=== PATIENT | female | born 1955 | race Caucasian/White ===

== ENCOUNTER 2017-07-24 00:15 | Inpatient (IN) | payer OTHER ==
[~2017-07-24] VITALS: Ht 147.3 cm; Wt 59.2 kg
[~2017-07-24 00:15] MED LIST: CA P PO; HUM SUBQ; INSU100S45 SUBQ; LEVEMIR SUBQ
[2017-07-24 00:29] VITALS: BP 153/77
[2017-07-24] MEDS ORDERED: NACL 0.9% 500 ML IV ONE ×2 (01:04)
--- NOTE | 2017-07-24 01:14 | NUR ---
TO ER BED 8
--- NOTE | 2017-07-24 01:35 | NUR ---
GAUGE 20 IV LINE ESTABLISHED TO THE LEFT HAND. BLOOD DRAWN AND SENT TO THE LAB.
--- NOTE | 2017-07-24 01:39 | NUR ---
URINE DIPSTICK DONE, WILL NOTIFY MD OF RESULT.
[2017-07-24 01:44] LABS: HEMATOCRIT 46.7 % (36-48); HEMOGLOBIN 15.2 g/dL (12.0-16.0); MEAN CORPUSCULAR HEMOGLOBIN 28 pg (27-31); MEAN CORPUSCULAR HGB CONC 33 g/dL (33-37); MEAN CORPUSCULAR VOLUME 86 fL (80-94); PLATELET COUNT (AUTO) 156 K/uL (140-450); RED BLOOD CELL COUNT(AUTO) 5.45 MIL/uL (4.20-5.40); RED CELL DISTRIBUTION WIDTH 12.9 % (11.6-13.7); WHITE BLOOD COUNT (AUTO) 10.2 K/uL (4.8-10.8)
[2017-07-24 01:51] LABS: LYMPHOCYTES % (MANUAL) 15 % (20-46); MONOCYTES % (MANUAL) 9 % (5-12)
--- NOTE | 2017-07-24 01:51 | NUR ---
WENT FOR CXR VIA WHEELCHAIR.
--- NOTE | 2017-07-24 01:56 | NUR ---
BACK FROM X-RAY.
[2017-07-24 01:59] LABS: ALBUMIN 4.1 g/dL (3.4-5.0); ANION GAP 13.7 (8-16); ASPARTATE AMINOTRANSFERASE 13 U/L (15-37); CARBON DIOXIDE 26.3 mmol/L (21-32); CHLORIDE 99 mmol/L (98-107); CREATININE 0.8 mg/dL (0.6-1.3); GFR ARICAN-AMERICAN 93 mL/min (>90); SODIUM SERUM 135 mmol/L (136-145); TOTAL BILIRUBIN 0.9 mg/dL (0.0-1.0); UREA NITROGEN, BLOOD 11 mg/dL (7-18)
--- NOTE | 2017-07-24 01:59 | NUR ---
MD CAME AT BEDSIDE TO EVALUATE PATIENT.
[2017-07-24 02:02] LABS: ACETONE, SERUM NEGATIVE (NEGATIVE)
[2017-07-24 02:04] LABS: GLUCOSE 451 mg/dL (74-106)
[2017-07-24] MEDS ORDERED: KETOROLAC 30 MG/ML VIAL IVP ONE (02:05)
--- NOTE | 2017-07-24 02:05 | NUR ---
TORADOL 30 MG IVP GIVEN ORDERED FOR PAIN.
--- NOTE | 2017-07-24 02:40 | NUR ---
VERBALIZED SOME IMPROVEMENT OF PAIN (8/10).
[2017-07-24] MEDS ORDERED: ASPIRIN 81 MG TAB.CHEW PO ONE (02:50)
[2017-07-24] MEDS ORDERED: INSULIN HUMAN REGULAR 100 UNITS/ML 10 ML VIAL IVP ONE (02:50)
--- NOTE | 2017-07-24 03:04 | NUR ---
ASA 162 MG PO AND REGULAR INSULIN 10 UNITS IVP GIVEN FOR BLOOD [id number].
[2017-07-24 03:08] LABS: BILIRUBIN,URINE NEGATIVE (NEGATIVE); BLOOD, URINE 1+ (NEGATIVE); COLOR,URINE YELLOW (YELLOW); LEUKOCYTE ESTERASE ,URINE NEGATIVE (NEGATIVE); NITRITE, URINE NEGATIVE (NEGATIVE); PH,URINE 5.5 (5.0-9.0); UGLUCOSE 3+ (NEGATIVE)
[2017-07-24 03:16] LABS: APPEARANCE,URINE SLIGHTLY HAZY (CLEAR)
[2017-07-24 03:18] LABS: RBC,URINE 0-5 (RARE) /HPF (0-5); WBC,URINE 0-5 (RARE) /HPF (0-5); YEAST,URINE Rare /HPF (None Seen)
[2017-07-24] MEDS ORDERED: LOPERAMIDE 2 MG CAP PO ONE (03:20)
[2017-07-24] MEDS ORDERED: fentaNYL 0.05 MG/ML VIAL IVP ONE (03:20)
--- NOTE | 2017-07-24 03:35 | NUR ---
SUBLIMAZE 25 MCG AND IMMODIUM 2 MG PO GIVEN ORDERED.
--- NOTE | 2017-07-24 03:47 | NUR ---
BLODD SUGAR [id number]. MADE AWARE.
[2017-07-24] MEDS ORDERED: MORPHINE SULFATE 2 MG/ML SYR IVP PRN (03:55)
[2017-07-24] MEDS ORDERED: HYDROcodone/APAP 7.5/325 MG 1 TAB PO PRN (03:55)
[2017-07-24] MEDS ORDERED: ACETAMINOPHEN 325 MG TAB PO PRN (03:55)
[2017-07-24] MEDS ORDERED: ONDANSETRON 4 MG/2 ML VIAL IM/IVP PRN (03:55)
[2017-07-24] MEDS ORDERED: DOCUSATE SODIUM 100 MG GELCAP PO PRN (03:55)
--- NOTE | 2017-07-24 04:02 | NUR ---
PT ADMITTED TO TELEMETRY UNIT FOR CP,HYPERGLYCEMIA UNDER THE SERVICE OF . REPORT GIVEN TO OPAL FRANKLIN. PT.GOING TO ROOM 116.
[2017-07-24] MEDS ORDERED: ONDANSETRON 4 MG/2 ML VIAL IVP ONE (04:05)
[2017-07-24] MEDS ORDERED: DEXTROSE 50% 50 ML SYR IVP PRN (04:05)
--- NOTE | 2017-07-24 04:08 | NUR ---
ZOFRAN 4 MG IVP GIVEN FOR NAUSEA.
--- NOTE | 2017-07-24 04:15 | NUR ---
TRANSFERRED TO FLOOR VIA ACLS PROTOCOL STABLE. TRANSFER UNEVENTFUL.
[2017-07-24 04:26] VITALS: BP 136/65
--- NOTE | 2017-07-24 04:26 | NUR ---
Admitted from ER, with chief complaint of ELEVATED BLOOD SUGAR, DIARRHEA, DX HYPERGLYCEMIA, CHEST PAIN. 61 y/o, Female, Anxious, AOX4, ABLE TO VERBALIZE NEEDS. PT DENIES PAIN AT THIS TIME, PT WAS ALREADY MEDICATED IN ER. IV ACCESS ASYMPTOMATIC, PATENT AND INTACT. REMAINING IVF INFUSING WELL. DISCUSSED AND REVIEWED PLAN OF CARE WITH PT. PT VERBALIZED UNDERSTANDING. oriented to call light, bed, phone,television, bathroom, smoking policy, visiting hours, procedures, ID bracelet on. Belongings list checked. SAFETY MEASURES ENSURED. CALL LIGHT WITHIN REACH. WILL CONTINUE TO MONITOR.
[2017-07-24] MEDS: NACL 0.9% 1,000 ML IV SCH ×2 (04:29→14:14)
[2017-07-24] MEDS: BLOOD GLUCOSE MONITORING 1 DEV DEV FS SCH ×3 (05:10→11:30)
--- NOTE | 2017-07-24 05:10 | NUR ---
BLOOD SUGAR [address] PERES, MADE AWARE. MD INSTRUCTED TO RECHECK BLOOD SUGAR IN THE MORNING BEFORE BREAKFAST AND ADMINISTER INSULIN COVERAGE. WILL CARRY OUT.
[2017-07-24 05:35] LABS: CHOL/HDL RATIO 4.6 (1-4.5); FREE T4 (FREE THYROXINE) 0.94 ng/dL (0.76-1.46); MAGNESIUM 1.8 mg/dL (1.8-2.4); PHOSPHORUS 3.8 mg/dL (2.5-4.9); THYROID STIMULATING HORMONE 6.22 uIU/mL (0.34-3.74)
[2017-07-24] MEDS: INSULIN LISPRO SLIDING SCALE 100 UNITS/ML VIAL SUBQ PRN ×2 (06:14→12:47)
--- NOTE | 2017-07-24 07:15 | NUR ---
ENDORSED PLAN OF CARE TO AM NURSE. CONDITION STABLE.
--- NOTE | 2017-07-24 07:16 | NUR ---
RECEIVED PT FROM SANITIZER NURSE AT BEDSIDE. PT IS A&OX4. PT HAS IV ON L HAND 20 G RUNNING NS@60. NO DISTRESS NOTED IN PT. NO COMPLAINTS AT THIS TIME. CALL LIGHT WITHIN REACH. WILL CONTINUE TO MONITOR.
[2017-07-24 08:00] VITALS: BP 128/68
--- NOTE | 2017-07-24 08:30 | NUR ---
APPLIED SCD'S ON PATIENT. PT IS STABLE, RESTING IN BED. NO SIGNS OF DISTRESS NOTED. BED IN LOW POSITION, CALL LIGHT WITHIN REACH. WILL CONTINUE TO MONITOR.
[2017-07-24] MEDS ORDERED: FLUCONAZOLE 100 MG TAB PO SCH (09:40)
--- NOTE | 2017-07-24 11:00 | NUR ---
PT STATED "I ALWAYS HAVE DR. PATIENCE DOMINGUEZ MY ATTENDING DOCTOR HERE," PT REQUESTED TO CHANGE DR. CALLED ADMITTING. ADMITTING WILL HELP VERIFY PT'S INSURANCE.
--- NOTE | 2017-07-24 12:00 | NUR ---
PT REFUSED ECHO X2 DR MARTINEZ NOTIFIED PT STATED SHE IS HAS PP
[2017-07-24] MEDS ORDERED: HALOPERIDOL IM 5 MG/ML VIAL IM ONE (12:35)
--- NOTE | 2017-07-24 13:35 | NUR ---
DR. MARTINEZ EXPLAINED TO PT RISKS OF LEAVING HOSPITAL AGAINST MEDICAL ADVICE, PT STATED SHE HAS TO LEAVE DUE TO INSURANCE REASON, SIGNED AMA PAPER AND VERBALIZED UNDERSTANDING. PT REQUESTED LAB VALUES, GAVE PT A COPY OF LAB WORK. GAVE PT A COPY OF AMA FORM. IV REMOVED CANNULA INTACT. PT IN STABLE CONDITION. ALL ID BANDS CUT OFF. Addendum: 07/24/17 at 1447 by Shane Vanessa RN WALKED WITH PT OUT OF HOSPITAL.
[2017-07-25 12:18] LABS: T4 (THYROXINE) 5.7 ug/dL (4.5 - 12.0)
== END 2017-07-24 13:35 | disposition left against medical advice (07) | DRG 638 ==
LOC: MED 00:15 → MTU 03:17
PROVIDERS: ADMIT Family Medicine; ATTEND Family Medicine
DX: E11.65 Type 2 diabetes mellitus with hyperglycemia (principal); I24.9 Acute ischemic heart disease, unspecified; M94.0 Chondrocostal junction syndrome [Tietze]; I10 Essential (primary) hypertension; Z53.21 Procedure and treatment not carried out due to patient leaving prior to being seen by health care provider; K21.9 Gastro-esophageal reflux disease without esophagitis; F32.9 Major depressive disorder, single episode, unspecified; E78.1 Pure hyperglyceridemia; E02 Subclinical iodine-deficiency hypothyroidism; R19.7 Diarrhea, unspecified; Z91.14 Patient's other noncompliance with medication regimen; Z87.442 Personal history of urinary calculi; Z88.2 Allergy status to sulfonamides; Z88.8 Allergy status to other drugs, medicaments and biological substances; Z83.3 Family history of diabetes mellitus; Z83.42 Family history of familial hypercholesterolemia; Z80.6 Family history of leukemia
CPT/HCPCS: 36415; 71010; 80053; 81001; 82009; 82948; 83036; 83735; 83880; 84100; 84436; 84439; 84443; 84479; 84484; 85025; 85610; 85730; 87040; 87081; 87086; 93005; 96361; 96374; 96375; 99285; J1815; J1885; J2405; J3010; J7030; Q0163

== ENCOUNTER 2018-09-06 22:06 | Inpatient (IN) | payer OTHER ==
[~2018-09-06] VITALS: Ht 149.9 cm; Wt 54.9 kg
--- NOTE | 2018-09-06 22:09 | NUR ---
PT TAKEN TO BED 7
[2018-09-06 22:13] VITALS: BP 150/78
--- NOTE | 2018-09-06 22:15 | NUR ---
PT PRESENTED ER WITH C/O CHEST PAIN. PT STATED THAT SHE IS HAVING PAIN IN THE BACK AND LEGS BILATERAL. ONSET OF PAIN WAS TODAY. PT STATED SHE SAW HER PCP TODAY AND HE TOLD HER TO COME TO ER. PT IS FEELING DEPRESSED AND HAS ANXIETY DUE TO THE OF DAUGHTER ONE YR AGO. PT BS HAS BEEN ELEVATED TODAY. BS IS 400+ AT THIS TIME. PT STATED SHE HAS BEEN TAKING HER BS MEDS DIRECTED. PT HAS ALLERGIES TO SULFA. PT MEDICAL HX IS DM. PT IS A/O X 4. SKIN IS PINK/WARM/DRYSTEADY GAIT; LUNGS CLEAR BL; HR EVEN AND REGULAR; VSS; PATIENT POSITIONED FOR COMFORT; HOB ELEVATED; BEDRAILS UP X2; BED DOWN. ER MD MADE AWARE OF PT STATUS.
--- NOTE | 2018-09-06 22:16 | NUR ---
PT C/O CP IN L CHEST, 07/01 SHARP, NON RADIATING SINCE THIS AM. NALSO STATES "I THINK MY SUGAR IS HIGH", BS 478 ON ARRIVAL. A/OX4, GCS 15, DENIES SOB. STATES"I'M FEELING REALLY DEPRESSED LATELY." HX--- DIABETES MEDS---INSULIN
--- NOTE | 2018-09-06 23:19 | NUR ---
Dr. Waddell evaluating patient at bedside.
[2018-09-06] MEDS ORDERED: ASPIRIN 325 MG TAB PO ONE (23:25)
[2018-09-06] MEDS ORDERED: LORazepam 0.5 MG TAB PO ONE (23:25)
[2018-09-06] MEDS ORDERED: ONDANSETRON 4 MG ODT PO ONE (23:35)
--- NOTE | 2018-09-06 23:41 | NUR ---
X-Ray at bedside.
--- NOTE | 2018-09-06 23:44 | NUR ---
pt ambulates to restroom with emt without incidence
[2018-09-07 00:01] LABS: BASOPHILS % (AUTO) 0.4 % (0.0-2.0); EOSINOPHILS # (AUTO) 0.1 K/uL (0-0.4); EOSINOPHILS % (AUTO) 1.1 % (0.0-4.0); HEMATOCRIT 42.2 % (36-48); HEMOGLOBIN 14.1 g/dL (12.0-16.0); LYMPHOCYTES # (AUTO) 1.6 K/uL (2.5-16.5); LYMPHOCYTES % (AUTO) 25.5 % (20.5-51.1); MEAN CORPUSCULAR HEMOGLOBIN 29 pg (27-31); MEAN CORPUSCULAR HGB CONC 33 g/dL (33-37); MEAN CORPUSCULAR VOLUME 85.4 fL (80-94); MONOCYTES # (AUTO) 0.5 K/uL (0.8-1.0); MONOCYTES % (AUTO) 7.4 % (1.7-9.3); NEUTROPHILS # (AUTO) 4.2 K/uL (1.8-7.7); NEUTROPHILS % (AUTO) 65.6 % (42.2-75.2); PLATELET COUNT (AUTO) 162 K/uL (140-450); RED BLOOD CELL COUNT(AUTO) 4.93 MIL/uL (4.20-5.40); RED CELL DISTRIBUTION WIDTH 13.6 % (11.6-13.7); WHITE BLOOD COUNT (AUTO) 6.5 K/uL (4.8-10.8)
--- NOTE | 2018-09-07 00:05 | NUR ---
PT SITTING UP IN BED, VITALS STABLE.
[2018-09-07 00:15] LABS: ALBUMIN 3.5 g/dL (3.4-5.0); ANION GAP 10.2 (8-16); CARBON DIOXIDE 26.8 mmol/L (21-32); CREATININE 0.9 mg/dL (0.6-1.3); TOTAL BILIRUBIN 0.6 mg/dL (0.0-1.0)
[2018-09-07 00:23] LABS: CREATINE KINASE MB 0.9 ng/mL (0-3.6)
[2018-09-07] MEDS ORDERED: INSULIN REGULAR, HUMAN 100 UNIT/ML VIAL SUBQ ONE (00:35)
[2018-09-07] MEDS ORDERED: ONDANSETRON 4 MG/2 ML VIAL IM/IVP PRN (01:00)
[2018-09-07] MEDS ORDERED: HYDROcodone/APAP 5/325 MG 1 TAB TAB PO PRN (01:00)
[2018-09-07] MEDS ORDERED: MORPHINE SULFATE 4 MG/ML SYR IVP PRN (01:00)
[2018-09-07] MEDS ORDERED: LORazepam 2 MG/ML VIAL IM/IVP PRN (01:00)
[2018-09-07] MEDS ORDERED: DOCUSATE SODIUM 100 MG GELCAP PO PRN (01:00)
[2018-09-07] MEDS ORDERED: ZOLPIDEM 5 MG TAB PO PRN (01:00)
[2018-09-07] MEDS ORDERED: ACETAMINOPHEN 325 MG TAB PO PRN (01:00)
[2018-09-07] MEDS ORDERED: DEXTROSE 50% 50 ML SYR IVP PRN (01:10)
--- NOTE | 2018-09-07 01:16 | NUR ---
Dr. Goldberg evaluating patient at bedside.
[2018-09-07] MEDS: NACL 0.9% 1,000 ML IV SCH ×2 (01:38→17:56)
[2018-09-07] MEDS ORDERED: NITROGLYCERIN 0.4 MG TAB SL ONE (01:40)
[2018-09-07 01:51] LABS: PROTHROMBIN TIME 8.7 secs (10.8-13.4)
[2018-09-07] MEDS ORDERED: NITROGLYCERIN 0.4 MG TAB SL PRN (01:55)
[2018-09-07 02:00] VITALS: BP 130/57
--- NOTE | 2018-09-07 02:00 | NUR ---
Pt report given to JUDI FRANKLIN. Transfer of care at this time.VITALS STABLE AT TRANSFER
--- NOTE | 2018-09-07 02:00 | NUR ---
RECEIVED REPORT FROM ED NURSE AT BEDSIDE. PT IN STABLE CONDITION. AAOX4. INTRODUCED SELF TO PT. BOARD UPDATED. NO COMPLAINTS OF PAIN. NO SOB. IV SITE R HAND 20G RUNNING NS@60ML/HR PATENT AND INTACT. BED LOCKED IN LOW POSITION. CALL TERRY WITHIN REACH. SAFETY MEASURES IN PLACE.
[2018-09-07 02:02] LABS: MAGNESIUM 1.8 mg/dL (1.8-2.4); PHOSPHORUS 3.8 mg/dL (2.5-4.9); THYROID STIMULATING HORMONE 7.82 uIU/mL (0.34-3.74)
[2018-09-07] MEDS ORDERED: LIRA6SOL SC (02:05)
[2018-09-07] MEDS ORDERED: INSU200I4 SQ (02:05)
--- NOTE | 2018-09-07 02:05 | NUR ---
Patient will be admitted to care of DR. VAZQUEZ. Admited to TELEMETRY. Will go to room 118B. Belongings list completed. Report to JUDI FRANKLIN. VITALS STABLE.
--- NOTE | 2018-09-07 02:19 | NUR ---
AMBIEN GIVEN PO FOR SLEEP. PT TOLERATED WELL.
--- NOTE | 2018-09-07 03:30 | NUR ---
URINE SAMPLE COLLECTED FOR UA. SENT TO LAB.
[2018-09-07 03:53] LABS: APPEARANCE,URINE CLEAR (CLEAR); BILIRUBIN,URINE NEGATIVE (NEGATIVE); BLOOD, URINE NEGATIVE (NEGATIVE); COLOR,URINE YELLOW (YELLOW); LEUKOCYTE ESTERASE ,URINE NEGATIVE (NEGATIVE); NITRITE, URINE NEGATIVE (NEGATIVE); PH,URINE 6.5 (5.0-9.0); UGLUCOSE 4+ (NEGATIVE)
[2018-09-07 03:54] LABS: RBC,URINE 0-5 (RARE) /HPF (0-5); WBC,URINE 0-5 (RARE) /HPF (0-5)
[2018-09-07 04:00] VITALS: BP 110/51
--- NOTE | 2018-09-07 05:00 | NUR ---
PT SLEEPING COMFORTABLY IN BED. NO S/S OF DISTRESS NOTED. NO COMPLAINTS OF PAIN. NO SOB. WILL CONTINUE TO MONITOR.
[2018-09-07] MEDS: BLOOD GLUCOSE MONITORING 1 DEV DEV FS SCH ×4 (06:10→20:23)
[2018-09-07] MEDS: INSULIN LISPRO SLIDING SCALE 100 UNITS/ML VIAL SUBQ PRN ×4 (06:20→20:35)
--- NOTE | 2018-09-07 06:20 | NUR ---
BS 292. 6 UNITS OF HUMALOG GIVEN. PT TOLERATED WELL.
--- NOTE | 2018-09-07 07:10 | NUR ---
REPORT GIVEN TO AM NURSE AT BEDSIDE. PT IN STABLE CONDITION.
--- NOTE | 2018-09-07 07:11 | NUR ---
RECEIVED BEDSIDE REPORT FROM PM SHIFT NURSE. PT ASLEEP IN BED, RESPIRATIONS EVEN & UNLABORED. CALL LIGHT WITHIN REACH.
[2018-09-07 08:00] VITALS: BP 123/56
--- NOTE | 2018-09-07 08:31 | NUR ---
PATIENT HAS BEEN SCREENED AND CATEGORIZED MODERATE NUTRITION RISK. PATIENT WILL BE SEEN WITHIN 3-5 DAYS OF ADMISSION. 09/09/18 09/11/[address]
--- NOTE | 2018-09-07 09:15 | NUR ---
PT SITTING UP IN BED, AWAKE, DENIES ANY DISCOMFORT. PT REQUESTS TO HAVE DR. PATIENCE DOMINGUEZ FOLLOW HER IN HOSPITAL BECAUSE HE'S HER PCP. DR. FARAH NOTIFIED & WILL F/U WITH PT.
[2018-09-07] MEDS: METOPROLOL 25 MG TAB PO SCH ×2 (09:33→20:42)
[2018-09-07] MEDS: ASPIRIN 81 MG TAB.CHEW PO SCH (09:33)
[2018-09-07] MEDS: ATORVASTATIN 20 MG TAB PO SCH (09:34)
[2018-09-07] MEDS: LISINOPRIL 5 MG TAB PO SCH (09:34)
[2018-09-07] MEDS: INSULIN LANTUS 100 UNITS/ML 10 ML VIAL SUBQ SCH (09:40)
[2018-09-07 10:02] LABS: CHOL/HDL RATIO 3.5 (1-4.5)
[2018-09-07 10:26] LABS: ANION GAP 11.9 (8-16); CARBON DIOXIDE 25.8 mmol/L (21-32); CREATININE 0.5 mg/dL (0.6-1.3); POTASSIUM 3.7 mmol/L (3.5-5.1)
[2018-09-07 12:00] VITALS: BP 146/65
--- NOTE | 2018-09-07 12:38 | NUR ---
CM NOTE PER BAGGER MEAT SAVANA, REVIEWS SHOULD ONLY BE SENT TO [facility] IS THE SAME [facility] FAX# [phone]. INITIAL REVIEW [phone] ANSHUL ALVARES PH# [phone].
--- NOTE | 2018-09-07 14:30 | NUR ---
RECEIVED REPORT FROM NURSE. PT LYING IN BED. NO DISTRESS OBSERVE. RESPIRATIONS EVEN AND UNLABORED. IV SITE INTACT, PATENT. REVIEWED PLAN OF CARE WITH PT, PT VERBALIZED UNDERSTANDING PLAN OF CARE. SAFETY MEASURES IN PLACE. CALL LIGHT AT BEDSIDE. WILL CONTINUE TO MONITOR.
[2018-09-07] MEDS ORDERED: ESCITALOPRAM 20 MG TAB PO SCH (15:00)
[2018-09-07 16:00] VITALS: BP 117/66
[2018-09-07] MEDS: GABAPENTIN 300 MG CAP PO SCH (16:08)
--- NOTE | 2018-09-07 18:00 | NUR ---
PATIENT SITTING IN BED WITH DINNER TRAY IN FRONT. NO DISTRESS NOTED. FAMILY MEMBER AT BEDSIDE. WILL CONTINUE TO MONITOR.
--- NOTE | 2018-09-07 19:29 | NUR ---
GAVE REPORT TO PHOTOVOLTAIC FABRICATION TECHNICIAN NURSE FOR CONTINUITY OF CARE. PATIENT IN STABLE CONDITION
--- NOTE | 2018-09-07 19:30 | NUR ---
REPORT RECEIVED FROM AM NURSE AT BEDSIDE. PT IN STABLE CONDITION. AAOX4. INTRODUCED SELF. BOARD UPDATED. NO COMPLAINTS OF PAIN. NO SOB. IV SITE R HAND 20G RUNNING NS@60ML/HR PATENT AND INTACT. SKIN WARM, DRY, AND INTACT WITH NO OPEN WOUNDS. BED LOCKED IN LOW POSITION. CALL TERRY WITHIN REACH. WILL CONTINUE TO MONITOR.
[2018-09-07 20:00] VITALS: BP 98/49
[2018-09-07] MEDS: traZODone 50 MG TAB PO SCH (20:38)
--- NOTE | 2018-09-07 20:38 | NUR ---
TRAZODONE GIVEN PO. METOPROLOL HELD DUE TO DECREASED BP. NOTIFIED AND GAVE ORDER TO HOLD. BS 242. 4 UNITS OF INSULIN GIVEN. PT TOLERATED WELL.
--- NOTE | 2018-09-07 23:00 | NUR ---
PT SLEEPING COMFORTABLY. NO S/S OF DISTRESS NOTED. NO COMPLAINTS OF PAIN. NO SOB. WILL CONTINUE TO MONITOR.
[2018-09-08] VITALS: BP 101/48
--- NOTE | 2018-09-08 01:30 | NUR ---
PT SLEEPING COMFORTABLY RIGHT LATERAL. BREATHING EVEN, UNLABORED, AND WNL.
--- NOTE | 2018-09-08 03:15 | NUR ---
PT SLEEPING COMFORTABLY IN BED. NO S/S OF DISTRESS NOTED. WILL CONTINUE TO MONITOR.
[2018-09-08 04:00] VITALS: BP 107/51
--- NOTE | 2018-09-08 06:00 | NUR ---
BS 193. 2 UNITS OF HUMALOG GIVEN. PT TOLERATED WELL.
--- NOTE | 2018-09-08 06:30 | NUR ---
EDUCATED PT ON DIABETIC CONTROL. TOLD TO FOLLOW UP WITH PRIMARY CARE PHYSICIAN.
[2018-09-08] MEDS: INSULIN LISPRO SLIDING SCALE 100 UNITS/ML VIAL SUBQ PRN ×4 (06:34→20:32)
[2018-09-08] MEDS: BLOOD GLUCOSE MONITORING 1 DEV DEV FS SCH ×4 (06:35→20:11)
--- NOTE | 2018-09-08 07:10 | NUR ---
REPORT GIVEN TO AM NURSE AT BEDSIDE. PT IN STABLE CONDITION.
--- NOTE | 2018-09-08 07:10 | NUR ---
PT REPORT RECEIVED FROM FLIGHT COORDINATOR NURSE AT BEDSIDE. PT IS ALERT AND AWAKE. IV SITE NOTED ON R HAND, 20 GAUGE, INFUSING NS AT 60 ML/HR. PT IS ON ROOM AIR. SKIN INTACT. PT IS STABLE, NO S/S OF DISTRESS NOTED AT THIS TIME. CALL LIGHT WITHIN REACH, BED IN LOW POSITION. WILL CONTINUE TO MONITOR.
[2018-09-08 07:18] LABS: BASOPHILS % (AUTO) 0.3 % (0.0-2.0); EOSINOPHILS # (AUTO) 0.1 K/uL (0-0.4); EOSINOPHILS % (AUTO) 0.9 % (0.0-4.0); HEMATOCRIT 39.7 % (36-48); HEMOGLOBIN 13.1 g/dL (12.0-16.0); LYMPHOCYTES # (AUTO) 1.7 K/uL (2.5-16.5); LYMPHOCYTES % (AUTO) 21.1 % (20.5-51.1); MEAN CORPUSCULAR HEMOGLOBIN 28 pg (27-31); MEAN CORPUSCULAR HGB CONC 33 g/dL (33-37); MEAN CORPUSCULAR VOLUME 85.3 fL (80-94); MONOCYTES # (AUTO) 0.4 K/uL (0.8-1.0); MONOCYTES % (AUTO) 5.4 % (1.7-9.3); NEUTROPHILS # (AUTO) 5.9 K/uL (1.8-7.7); NEUTROPHILS % (AUTO) 72.3 % (42.2-75.2); PLATELET COUNT (AUTO) 133 K/uL (140-450); RED BLOOD CELL COUNT(AUTO) 4.65 MIL/uL (4.20-5.40); RED CELL DISTRIBUTION WIDTH 13.6 % (11.6-13.7); WHITE BLOOD COUNT (AUTO) 8.2 K/uL (4.8-10.8)
[2018-09-08 07:42] LABS: ANION GAP 12.9 (8-16); CARBON DIOXIDE 25.4 mmol/L (21-32); CREATININE 0.6 mg/dL (0.6-1.3); POTASSIUM 4.3 mmol/L (3.5-5.1)
[2018-09-08 08:00] VITALS: BP 108/63
[2018-09-08 08:11] LABS: T4 (THYROXINE) 6.3 ug/dL (4.5-12.0)
[2018-09-08] MEDS: ASPIRIN 81 MG TAB.CHEW PO SCH (08:41)
[2018-09-08] MEDS: GABAPENTIN 300 MG CAP PO SCH ×3 (08:41→17:04)
[2018-09-08] MEDS: ATORVASTATIN 20 MG TAB PO SCH (08:41)
[2018-09-08] MEDS: ESCITALOPRAM 20 MG TAB PO SCH (08:41)
[2018-09-08] MEDS: LISINOPRIL 5 MG TAB PO SCH (08:42)
[2018-09-08] MEDS: METOPROLOL 25 MG TAB PO SCH ×2 (09:00→20:10)
[2018-09-08] MEDS: INSULIN LANTUS 100 UNITS/ML 10 ML VIAL SUBQ SCH (09:04)
[2018-09-08] MEDS: NACL 0.9% 1,000 ML IV SCH (09:06)
--- NOTE | 2018-09-08 10:03 | NUR ---
CM NOTE CONCURRENT REVIEW FAXED TO [facility] [phone]. ANSHUL ALVARES # [phone] CONFIRMED THAT THIS IS THEIR PATIENT AND THAT SHE HAS BEEN RECEIVING THE REVIEWS SENT.
--- NOTE | 2018-09-08 11:00 | NUR ---
PT RESTING COMFORTABLY IN BED AT THIS TIME. NO C/O PAIN OR DISCOMFORT. CALL LIGHT WITHIN REACH, WILL CONTINUE TO MONITOR.
[2018-09-08 12:00] VITALS: BP 133/64
--- NOTE | 2018-09-08 15:28 | NUR ---
PT SLEEPING AT THIS TIME. IV NS INFUSING. NO S/S OF DISTRESS NOTED. BED IS IN LOW POSITION, CALL LIGHT WITHIN REACH. WILL CONTINUE TO MONITOR.
[2018-09-08] MEDS ORDERED: LORazepam 2 MG/ML VIAL IVP PRN (15:55)
[2018-09-08 15:58] VITALS: BP 107/54
--- NOTE | 2018-09-08 17:44 | NUR ---
PT IS AWAKE, ALERT, AND ORIENTED, EATING DINNER AT THIS TIME. NO S/S OF DISTRESS NOTED. CALL LIGHT WITHIN REACH. BED IN LOW POSITION. WILL CONTINUE TO MONITOR.
--- NOTE | 2018-09-08 19:10 | NUR ---
RECEIVED BEDSIDE REPORT FROM DAY SHIFT NURSE NATHANIEL. PT IN BED ON PHONE, ON RA, NO SIGNS OF ACUTE DISTRESS, V/S TAKEN ALL WITHIN PATIENTS BASELINE, DENIES PAIN. BG 313 WITH MEDICATE WITH 8 UNITS INSULIN ACCORDING TO MD ORDER. IV IN RIGHT HAND 20 G INFUSING NS AT 60 ML, IV SITE CLEAN AND INTACT. EXPLAINED PLAN OF CARE, PATIENT STATED SHE HAS HAD PROBLEMS SLEEPING LATELY, ASKED IF WANTED SCHEDULED TRAMADOL, PT AGREED, EDUCATION PROVIDED REGARDING SCHEDULED MEDICATIONS, UPDATED BORED, CALL LIGHT WITHIN REACH. WILL CONTINUE TO MONITOR.
--- NOTE | 2018-09-08 19:10 | NUR ---
PT REPORT GIVEN TO MANAGER MECHANICAL MAINTENANCE NURSE, NICHOLAS RN. PT IS ENDORSED IN STABLE CONDITION.
[2018-09-08 20:00] VITALS: BP 112/65
[2018-09-08] MEDS: traZODone 50 MG TAB PO SCH (20:10)
--- NOTE | 2018-09-08 20:10 | NUR ---
SCHEDULED MEDICATIONS GIVEN, PT TOLERATED WELL. CALL LIGHT WITHIN REACH, WILL CONTINUE TO MONITOR.
--- NOTE | 2018-09-08 22:18 | NUR ---
PT IN BED ASLEEP, NO SIGNS OF ACUTE DISTRESS, WILL CONTINUE TO MONITOR.
--- NOTE | 2018-09-08 23:55 | NUR ---
V/S TAKEN ALL WITHIN PATIENTS BASELINE, FLUSHED IV WITH 10 ML NS. CALL LIGHT WITHIN REACH, WILL CONTINUE TO MONITOR.
[2018-09-09] VITALS: BP 110/58
--- NOTE | 2018-09-09 02:00 | NUR ---
PT ASLEEP IN BED, NO SIGNS OF DISTRESS, CALL LIGHT WITHIN REACH, WILL CONTINUE TO MONITOR.
[2018-09-09] MEDS: NACL 0.9% 1,000 ML IV SCH (02:50)
[2018-09-09 04:00] VITALS: BP 105/55
--- NOTE | 2018-09-09 04:15 | NUR ---
PATIENT RESTING IN BED, NO SIGNS OF ACUTE DISTRESS, WILL CONTINUE TO MONITOR, CALL LIGHT WITHIN PATIENTS REACH.
--- NOTE | 2018-09-09 06:14 | NUR ---
BG 179 WILL MEDICATE ACCORDING TO MD ORDER.
[2018-09-09 06:23] LABS: BASOPHILS % (AUTO) 0.2 % (0.0-2.0); EOSINOPHILS # (AUTO) 0.1 K/uL (0-0.4); EOSINOPHILS % (AUTO) 1.4 % (0.0-4.0); HEMATOCRIT 36.4 % (36-48); HEMOGLOBIN 12.3 g/dL (12.0-16.0); LYMPHOCYTES # (AUTO) 1.9 K/uL (2.5-16.5); LYMPHOCYTES % (AUTO) 27.6 % (20.5-51.1); MEAN CORPUSCULAR HEMOGLOBIN 29 pg (27-31); MEAN CORPUSCULAR HGB CONC 34 g/dL (33-37); MEAN CORPUSCULAR VOLUME 84.6 fL (80-94); MONOCYTES # (AUTO) 0.3 K/uL (0.8-1.0); MONOCYTES % (AUTO) 4.5 % (1.7-9.3); NEUTROPHILS # (AUTO) 4.5 K/uL (1.8-7.7); NEUTROPHILS % (AUTO) 66.3 % (42.2-75.2); PLATELET COUNT (AUTO) 120 K/uL (140-450); RED CELL DISTRIBUTION WIDTH 13.5 % (11.6-13.7); WHITE BLOOD COUNT (AUTO) 6.8 K/uL (4.8-10.8)
[2018-09-09] MEDS: INSULIN LISPRO SLIDING SCALE 100 UNITS/ML VIAL SUBQ PRN ×4 (06:37→20:16)
[2018-09-09] MEDS: BLOOD GLUCOSE MONITORING 1 DEV DEV FS SCH ×4 (06:37→20:04)
[2018-09-09 06:49] LABS: ANION GAP 10.7 (8-16); CARBON DIOXIDE 26.5 mmol/L (21-32); CREATININE 0.5 mg/dL (0.6-1.3); POTASSIUM 4.2 mmol/L (3.5-5.1)
--- NOTE | 2018-09-09 07:10 | NUR ---
ENDORSED PATIENT TO DAY SHIFT NURSE, PATIENT STABLE.
--- NOTE | 2018-09-09 07:23 | NUR ---
PT REPORT OBTAINED AT BEDSIDE FROM STAFF TOXICOLOGIST NURSE. PT IS CURRENTLY SLEEPING. IV SITE NOTED ON THE R HAND, 20 GAUGE. IV NS IS INFUSING AT60 ML/HR. PT IS ON ROOM AIR. NO S/S OF DISTRESS NOTED. CALL LIGHT WITHIN REACH. WILL CONTINUE TO MONITOR.
[2018-09-09 08:00] VITALS: BP 112/63
--- NOTE | 2018-09-09 08:45 | NUR ---
PT SEEN BY DR. FARAH.
[2018-09-09] MEDS: ESCITALOPRAM 20 MG TAB PO SCH (09:04)
[2018-09-09] MEDS: LISINOPRIL 5 MG TAB PO SCH (09:04)
[2018-09-09] MEDS: GABAPENTIN 300 MG CAP PO SCH ×3 (09:04→16:45)
[2018-09-09] MEDS: ATORVASTATIN 20 MG TAB PO SCH (09:05)
[2018-09-09] MEDS: INSULIN LANTUS 100 UNITS/ML 10 ML VIAL SUBQ SCH (09:11)
[2018-09-09] MEDS ORDERED: KETOROLAC 30 MG/ML VIAL IM PRN (09:15)
[2018-09-09] MEDS ORDERED: MAGNESIUM OXIDE 400 MG TAB PO SCH (10:00)
--- NOTE | 2018-09-09 11:02 | NUR ---
CM NOTE CONCURRENT REVIEW FAXED TO [facility] [phone] ANSHUL ALVARES PH# [phone]
[2018-09-09] MEDS ORDERED: KETOROLAC 30 MG/ML VIAL IVP PRN (11:05)
[2018-09-09 11:48] VITALS: BP 134/58
[2018-09-09] MEDS ORDERED: ESCI10TA PO (12:09)
[2018-09-09] MEDS ORDERED: SIMV20TA6 PO (12:09)
[2018-09-09] MEDS ORDERED: GABA300C PO (12:09)
[2018-09-09] MEDS ORDERED: LISI5TAB18 PO (12:09)
[2018-09-09] MEDS ORDERED: TRAZ-344 PO (12:09)
--- NOTE | 2018-09-09 12:53 | NUR ---
PT AWAKE AND ALERT, EATING LUNCH AT THIS TIME. NO S/S OF DISTRESS NOTED. CALL LIGHT WITHIN REACH. WILL CONTINUE TO MONITOR.
--- NOTE | 2018-09-09 13:17 | NUR ---
COMPLAIN OF CONSTIPATION COLACE 100MG GIVEN AT THIS TIME
--- NOTE | 2018-09-09 14:30 | NUR ---
WALKED WITH PT 2 LOOPS AROUND THE UNIT PER DR'S ORDER. PT TOLERATED WELL. NO C/O WEAKNESS, INSTABILITY, OR PAIN.
[2018-09-09 16:00] VITALS: BP 113/54
[2018-09-09] MEDS: MAGNESIUM CITRATE 300 ML BTL PO SCH ×2 (16:30→16:45)
--- NOTE | 2018-09-09 17:01 | NUR ---
PT UNABLE TO TOLERATE TASTE OF MAG CITRATE. SHE STATES THAT SHE HAD A BM YESTERDAY. STATES THAT SHE IS NOT FEELING CONSTIPATED AT THIS TIME.
[2018-09-09] MEDS ORDERED: BISACODYL 5 MG TABEC PO PRN (17:30)
--- NOTE | 2018-09-09 18:15 | NUR ---
PT HAVING ABD X-RAY AT THIS TIME.
--- NOTE | 2018-09-09 19:30 | NUR ---
RECEIVED BEDSIDE REPORT FROM DAY SHIFT NURSE NATHANIEL. PT IN BED, DAUGHTER AT BEDSIDE, ON RA, NO SIGNS OF ACUTE DISTRESS, V/S TAKEN ALL WITHIN PATIENTS BASELINE, DENIES PAIN. BG AT 215 WILL MEDICATE WITH 4 UNITS INSULIN ACCORDING TO MD ORDER. IV IN RIGHT HAND 20 G, SL, IV SITE CLEAN AND INTACT. EXPLAINED PLAN OF CARE, EDUCATION PROVIDED REGARDING SCHEDULED MEDICATIONS, UPDATED BORED, CALL LIGHT WITHIN REACH. WILL CONTINUE TO MONITOR.
--- NOTE | 2018-09-09 19:30 | NUR ---
PT REPORT GIVEN TO PATIENT LIAISON NURSE AT BEDSIDE. PT ENDORSED IN STABLE CONDITION.
[2018-09-09 20:00] VITALS: BP 136/66
[2018-09-09] MEDS: traZODone 50 MG TAB PO SCH (20:04)
--- NOTE | 2018-09-09 22:30 | NUR ---
SCHEDULED MEDICATIONS GIVEN PATIENT TOLERATED WELL, AMBULATED X1 AROUND NURSING STATION, TOLERATED WELL, NO REPORTS OF DIZZINESS. ASSISTED BACK INTO BED, CALL LIGHT WITHIN REACH, WILL CONTINUE TO MONITOR.
[2018-09-10] VITALS: BP 136/66
--- NOTE | 2018-09-10 00:10 | NUR ---
V/S TAKEN ALL WITHIN BASELINE, CALL LIGHT WITHIN REACH, PT RESTING IN BED.
[2018-09-10] MEDS ORDERED: INFLUENZA VIRUS VACCINE QUAD 0.5 ML SYR IMVAC PRN (00:15)
--- NOTE | 2018-09-10 01:36 | NUR ---
PATIENT ASLEEP IN BED, NO SIGNS OF DISTRESS, CALL LIGHT WITHIN REACH WILL CONTINUE TO MONITOR.
--- NOTE | 2018-09-10 03:00 | NUR ---
ASLEEP IN BED NO SIGNS OF DISTRESS.
--- NOTE | 2018-09-10 06:30 | NUR ---
BG 182 WILL MEDICATE ACCORDING TO MD ORDER WITH INSULIN.
[2018-09-10] MEDS: BLOOD GLUCOSE MONITORING 1 DEV DEV FS SCH (06:42)
[2018-09-10] MEDS: INSULIN LISPRO SLIDING SCALE 100 UNITS/ML VIAL SUBQ PRN (06:47)
[2018-09-10 07:15] LABS: BASOPHILS % (AUTO) 0.2 % (0.0-2.0); EOSINOPHILS # (AUTO) 0.1 K/uL (0-0.4); EOSINOPHILS % (AUTO) 1.5 % (0.0-4.0); HEMOGLOBIN 12.2 g/dL (12.0-16.0); LYMPHOCYTES # (AUTO) 1.7 K/uL (2.5-16.5); MEAN CORPUSCULAR HEMOGLOBIN 29 pg (27-31); MEAN CORPUSCULAR HGB CONC 34 g/dL (33-37); MEAN CORPUSCULAR VOLUME 84.8 fL (80-94); MONOCYTES # (AUTO) 0.4 K/uL (0.8-1.0); MONOCYTES % (AUTO) 6.2 % (1.7-9.3); NEUTROPHILS # (AUTO) 3.9 K/uL (1.8-7.7); NEUTROPHILS % (AUTO) 64.1 % (42.2-75.2); PLATELET COUNT (AUTO) 115 K/uL (140-450); RED BLOOD CELL COUNT(AUTO) 4.25 MIL/uL (4.20-5.40); RED CELL DISTRIBUTION WIDTH 13.6 % (11.6-13.7); WHITE BLOOD COUNT (AUTO) 6.1 K/uL (4.8-10.8)
--- NOTE | 2018-09-10 07:30 | NUR ---
ENDORSED PATIENT TO DAY SHIFT NURSE PATIENT STABLE.
--- NOTE | 2018-09-10 07:31 | NUR ---
RECEIVED REPORT FROM PM NURSE AT BEDSIDE. PT AOX4, LYING ON HER BED. STATES TO WANT TO GET FLU SHOT BEFORE DISCHARGE. INFORMED HER THAT WILL SEE THE ORDER AND ADMINISTER FLU SHOT BEFORE SHE IS DISCHARGED. HAS IV ACCESS RT AC 2OG IV ACCESS , SALINE LOCKED. SKIN INTACT. SELF AMBULATORY. SIGN OF DISTRESS NOTED. PLACED CALL LIGHT PLACED NEAR PT , INFORMED HER TO USE CALL LIGHT FOR ANY HELP. WILL CONTINUE TO MONITOR PT.
[2018-09-10 07:49] LABS: ANION GAP 7.9 (8-16); CARBON DIOXIDE 27.1 mmol/L (21-32); CREATININE 0.5 mg/dL (0.6-1.3)
[2018-09-10 08:00] VITALS: BP 122/52
--- NOTE | 2018-09-10 09:45 | NUR ---
ADMINISTERED MEDS TO PT ORDERED. PT TOLERATED WELL. STATES WANNA DC HOME BEFORE 1300, ALSO WANTS BRITTNY GET PNA VACCINE AT TIME OF DC. INFORMED HER THAT WILL ADMINISTER PNA VACCINE RT BEFORE SHE IS DISCHARGED. ASKING TO WRITE THE PRESCRIPTION , BEING SPECIFIC TO CAUSE FOR TAKING TO AVOID GETTING CONFUSED WHILE TAKING MEDS BY HERSELF. INFORMED THAT WILL TALK TO DOCTOR . PT STABLE, NO SIGN OF DEPRESSION. COMMUNICATING FREELY. INFORMED HER THAT WORK ON DC PAPER SOON ORDERS ARE AVAILABLE . VERBALIZED UNDERSTANDING. WILL CONTINUE TO MONITOR PT.
[2018-09-10] MEDS: ESCITALOPRAM 20 MG TAB PO SCH (09:47)
[2018-09-10] MEDS: GABAPENTIN 300 MG CAP PO SCH (09:48)
[2018-09-10] MEDS: LISINOPRIL 5 MG TAB PO SCH (09:48)
[2018-09-10] MEDS: INSULIN LANTUS 100 UNITS/ML 10 ML VIAL SUBQ SCH (09:55)
[2018-09-10] MEDS: ATORVASTATIN 20 MG TAB PO SCH (09:58)
[2018-09-10] MEDS ORDERED: LISI-424 PO (10:01)
[2018-09-10] MEDS ORDERED: GABA-638 PO (10:01)
[2018-09-10] MEDS ORDERED: ESCI20TA47 PO (10:01)
[2018-09-10] MEDS ORDERED: TRAZ-370 PO (10:01)
[2018-09-10] MEDS ORDERED: ATOR20TA40 PO (10:01)
[2018-09-10] MEDS ORDERED: BISA5TAB79 PO (10:01)
--- NOTE | 2018-09-10 11:25 | NUR ---
PT WENT HOME ON HER OWN. STATES ABLE TO DRIVE. GOT FLU SHOT BEFORE LEAVING. TOOK ALL HER BELONGINGS AND DC PACKET WITH PRESCRIPTION. PT VERBALIZED UNDERSTANDING OF DC INSTRUCTION. PT STABLE AND WALKED SELF OUT TO LOBBY .
== END 2018-09-10 11:15 | disposition home or self-care (01) | DRG 205 ==
LOC: MED 22:06 → EEVIPCON 09-07 01:00 → MTU 09-07 01:00 → UNDODEPER 09-07 01:36 → MTU 09-07 01:52
PROVIDERS: ADMIT General Practice; ATTEND General Practice
DX: M94.0 Chondrocostal junction syndrome [Tietze] (principal); N17.0 Acute kidney failure with tubular necrosis; E87.1 Hypo-osmolality and hyponatremia; F43.23 Adjustment disorder with mixed anxiety and depressed mood; E11.65 Type 2 diabetes mellitus with hyperglycemia; E11.40 Type 2 diabetes mellitus with diabetic neuropathy, unspecified; E78.5 Hyperlipidemia, unspecified; G47.00 Insomnia, unspecified; E02 Subclinical iodine-deficiency hypothyroidism; D69.6 Thrombocytopenia, unspecified; N39.3 Stress incontinence (female) (male); Z88.8 Allergy status to other drugs, medicaments and biological substances; Z88.2 Allergy status to sulfonamides; Z87.442 Personal history of urinary calculi; F32.9 Major depressive disorder, single episode, unspecified; F41.9 Anxiety disorder, unspecified; K57.90 Diverticulosis of intestine, part unspecified, without perforation or abscess without bleeding; Z90.49 Acquired absence of other specified parts of digestive tract; Z83.3 Family history of diabetes mellitus; Z82.49 Family history of ischemic heart disease and other diseases of the circulatory system; Z80.6 Family history of leukemia; Z91.19 Patient's noncompliance with other medical treatment and regimen; Z23 Encounter for immunization
CPT/HCPCS: 36415; 71045; 74018; 80048; 80053; 81001; 82550; 82553; 82948; 83036; 83690; 83735; 83880; 84100; 84134; 84436; 84443; 84484; 85025; 85610; 85730; 87081; 90658; 93005; 93925; 96372; 99285; J1815; J2060; J7030; Q0092; Q0162

== ENCOUNTER 2018-10-14 19:32 | Emergency (ER) | payer OTHER ==
[~2018-10-14] VITALS: Ht 149.9 cm; Wt 54.4 kg
[~2018-10-14 19:32] MED LIST changes: +ATOR20TA40 PO; +BISA5TAB79 PO; -CA P PO; +ESCI10TA PO; +ESCI20TA47 PO; +GABA-638 PO; -HUM SUBQ; -INSU100S45 SUBQ; +INSU200I4 SQ; -LEVEMIR SUBQ; +LIRA6SOL SC; +LISI-424 PO; +LISI5TAB18 PO; +SIMV20TA6 PO; +TRAZ-344 PO; +TRAZ-370 PO
[2018-10-14 19:45] VITALS: BP 170/75
[2018-10-14] MEDS ORDERED: LORazepam 2 MG/ML VIAL IM ONE (21:10)
[2018-10-14 22:11] VITALS: BP 116/92
== END 2018-10-14 22:10 | disposition home or self-care (01) ==
LOC: MED 19:32
DX: F41.9 Anxiety disorder, unspecified (principal); E11.9 Type 2 diabetes mellitus without complications; Z87.442 Personal history of urinary calculi; Z88.2 Allergy status to sulfonamides; Z88.8 Allergy status to other drugs, medicaments and biological substances; Z79.899 Other long term (current) drug therapy; Z79.84 Long term (current) use of oral hypoglycemic drugs
CPT/HCPCS: 82948; 96372; 99283; J2060

== ENCOUNTER 2018-12-17 13:53 | Emergency (ER) | payer OTHER ==
[~2018-12-17] VITALS: Ht 144.8 cm; Wt 59.0 kg
[2018-12-17 14:01] VITALS: BP 174/88
--- NOTE | 2018-12-17 14:54 | NUR ---
BIB SELF WITH C/O SUBJECTIVE FEVERS, NAUSEA, 7/10 "ALL OVER" BODY PAIN AND 7/10 "SHARP" CONSTANT RIGHT SIDED CHEST PAIN RADIATING TO LEFT ARM X TODAY. PT ALSO REPORTS OF ANXIETY. CLEAR SPEECH WITH FULL SENTENCES. RR ARE EVEN AND UNLABORED. SKIN IS WARM/DRY/APPRIORIATE FOR ETHNICITY. PT ALSO REPORTS OF FEELING ANXIOUS. HX--DM. RX--"INSULIN"..PT DOES NOT RECALL MEDICATION
--- NOTE | 2018-12-17 16:03 | NUR ---
X RAY AT BEDSIDE
[2018-12-17] MEDS ORDERED: ACETAMINOPHEN 325 MG TAB PO ONE (17:05)
[2018-12-17] MEDS: MORPHINE SULFATE 4 MG/ML SYR IM ONE ×2 (17:10→17:13)
--- NOTE | 2018-12-17 17:19 | NUR ---
LAB AT BEDSIDE
[2018-12-17 17:29] LABS: BASOPHILS % (AUTO) 0.5 % (0.0-2.0); EOSINOPHILS # (AUTO) 0.1 K/uL (0-0.4); EOSINOPHILS % (AUTO) 0.8 % (0.0-4.0); HEMATOCRIT 41.7 % (36-48); HEMOGLOBIN 13.8 g/dL (12.0-16.0); LYMPHOCYTES # (AUTO) 1.8 K/uL (2.5-16.5); LYMPHOCYTES % (AUTO) 23.8 % (20.5-51.1); MEAN CORPUSCULAR HEMOGLOBIN 28 pg (27-31); MEAN CORPUSCULAR HGB CONC 33 g/dL (33-37); MEAN CORPUSCULAR VOLUME 83.7 fL (80-94); MONOCYTES # (AUTO) 0.5 K/uL (0.8-1.0); MONOCYTES % (AUTO) 5.9 % (1.7-9.3); NEUTROPHILS # (AUTO) 5.3 K/uL (1.8-7.7); PLATELET COUNT (AUTO) 167 K/uL (140-450); RED BLOOD CELL COUNT(AUTO) 4.99 MIL/uL (4.20-5.40); RED CELL DISTRIBUTION WIDTH 13.9 % (11.6-13.7); WHITE BLOOD COUNT (AUTO) 7.7 K/uL (4.8-10.8)
[2018-12-17 17:41] LABS: APPEARANCE,URINE CLEAR (CLEAR); BILIRUBIN,URINE NEGATIVE (NEGATIVE); BLOOD, URINE NEGATIVE (NEGATIVE); COLOR,URINE YELLOW (YELLOW); LEUKOCYTE ESTERASE ,URINE NEGATIVE (NEGATIVE); NITRITE, URINE NEGATIVE (NEGATIVE); UGLUCOSE 3+ (NEGATIVE)
[2018-12-17 17:43] LABS: ANION GAP 12.5 (8-16); CARBON DIOXIDE 27.5 mmol/L (21-32); CREATININE 0.7 mg/dL (0.6-1.3)
[2018-12-17 18:48] VITALS: BP 120/78
--- NOTE | 2018-12-17 18:48 | NUR ---
Patient discharged with v/s stable. Written and verbal after care instructions given and explained. Patient verbalized understanding. Ambulatory with steady gait. All questions addressed prior to discharge. Advised to follow up with PMD.
== END 2018-12-17 18:48 | disposition home or self-care (01) ==
LOC: MED 13:53
DX: M79.10 Myalgia, unspecified site (principal); E11.65 Type 2 diabetes mellitus with hyperglycemia; M79.671 Pain in right foot; M79.672 Pain in left foot; R07.89 Other chest pain; Z87.442 Personal history of urinary calculi; Z79.4 Long term (current) use of insulin; Z79.899 Other long term (current) drug therapy; Z88.8 Allergy status to other drugs, medicaments and biological substances
CPT/HCPCS: 36415; 71045; 80048; 81003; 81025; 82948; 85025; 93005; 99284; J2270; Q0092

== ENCOUNTER 2019-01-30 16:05 | Emergency (ER) | payer OTHER ==
[~2019-01-30] VITALS: Ht 147.3 cm; Wt 63.5 kg
[~2019-01-30 16:05] MED LIST changes: -TRAZ-370 PO; +TRAZ-466 PO
--- NOTE | 2019-01-30 16:16 | NUR ---
PT AMBULATED TO ER BED 06
[2019-01-30 16:22] VITALS: BP 148/95
--- NOTE | 2019-01-30 16:23 | NUR ---
BIB self s/p fall on sidewalk. Pt states she "did not trip, and doesn't know how she fell". Pain sustained to L forearm and hand, and right hand 10/. Pt states she also hit her face during the fall. No abraision or bruising visualized. Denies LOC, n/v. HX: DM 2 RX: Ervin
--- NOTE | 2019-01-30 17:10 | NUR ---
Pt on stretcher in supine position, bed in low position, pt awake and alert.
[2019-01-30] MEDS ORDERED: KETOROLAC 30 MG/ML VIAL IVP ONE (17:15)
[2019-01-30] MEDS ORDERED: NACL 0.9% 1,000 ML IV ONE (17:15)
[2019-01-30 17:50] LABS: BASOPHILS % (AUTO) 0.3 % (0.0-2.0); EOSINOPHILS # (AUTO) 0.1 K/uL (0-0.4); EOSINOPHILS % (AUTO) 0.9 % (0.0-4.0); HEMATOCRIT 41.2 % (36-48); HEMOGLOBIN 13.7 g/dL (12.0-16.0); LYMPHOCYTES # (AUTO) 1.3 K/uL (2.5-16.5); LYMPHOCYTES % (AUTO) 18.8 % (20.5-51.1); MEAN CORPUSCULAR HEMOGLOBIN 28 pg (27-31); MEAN CORPUSCULAR HGB CONC 33 g/dL (33-37); MEAN CORPUSCULAR VOLUME 83.3 fL (80-94); MONOCYTES # (AUTO) 0.6 K/uL (0.8-1.0); MONOCYTES % (AUTO) 8.4 % (1.7-9.3); NEUTROPHILS # (AUTO) 4.9 K/uL (1.8-7.7); NEUTROPHILS % (AUTO) 71.6 % (42.2-75.2); PLATELET COUNT (AUTO) 153 K/uL (140-450); RED BLOOD CELL COUNT(AUTO) 4.94 MIL/uL (4.20-5.40); RED CELL DISTRIBUTION WIDTH 14.2 % (11.6-13.7); WHITE BLOOD COUNT (AUTO) 6.8 K/uL (4.8-10.8)
--- NOTE | 2019-01-30 17:58 | NUR ---
XRAY AT BEDSIDE
--- NOTE | 2019-01-30 18:00 | NUR ---
Pt on stretcher in supine position, bed in low position, pt awake and alert.
[2019-01-30 18:09] LABS: ANION GAP 14.7 (8-16); CARBON DIOXIDE 25.3 mmol/L (21-32); CREATININE 0.9 mg/dL (0.6-1.3)
[2019-01-30 18:14] LABS: ALBUMIN 3.7 g/dL (3.4-5.0); TOTAL BILIRUBIN 0.6 mg/dL (0.0-1.0)
[2019-01-30] MEDS ORDERED: INSULIN REGULAR, HUMAN 100 UNIT/ML VIAL IVP ONE (18:35)
[2019-01-30 18:43] LABS: APPEARANCE,URINE CLEAR (CLEAR); BILIRUBIN,URINE NEGATIVE (NEGATIVE); BLOOD, URINE NEGATIVE (NEGATIVE); COLOR,URINE YELLOW (YELLOW); LEUKOCYTE ESTERASE ,URINE NEGATIVE (NEGATIVE); NITRITE, URINE NEGATIVE (NEGATIVE); UGLUCOSE 3+ (NEGATIVE)
--- NOTE | 2019-01-30 18:52 | NUR ---
CALLED AND MADE AWARE PT NEEDS RIDE HOME DUE TO HAVING A SPLINTED WRIST
--- NOTE | 2019-01-30 19:15 | NUR ---
ASSUMED CARE OF PT FROM NOEMI CRAIN.
--- NOTE | 2019-01-30 19:15 | NUR ---
REPORT GIVEN TO JCARLOS FRANKLINECONOMICS FACULTY MEMBER OF CARE AT THIS TIME
--- NOTE | 2019-01-30 19:34 | NUR ---
L WRIST SPLINT AND SLING APPLIED BY LACIE JOHNS. PULSES PRESENT PRIOR TO AND BEFORE APPLICATION.
[2019-01-30 19:35] VITALS: BP 142/69
--- NOTE | 2019-01-30 19:45 | NUR ---
RIGHT THUMB VELCRO SPLINT APPLIED. GOOD PMS BEFORE AND AFTER. SLING APPLIED AFTER SPLINT.
== END 2019-01-30 19:35 | disposition home or self-care (01) ==
LOC: MED 16:05
DX: S63.501A Unspecified sprain of right wrist, initial encounter (principal); S60.211A Contusion of right wrist, initial encounter; S60.222A Contusion of left hand, initial encounter; S80.211A Abrasion, right knee, initial encounter; E11.65 Type 2 diabetes mellitus with hyperglycemia; R07.9 Chest pain, unspecified; Z88.8 Allergy status to other drugs, medicaments and biological substances; Z88.2 Allergy status to sulfonamides; Z87.442 Personal history of urinary calculi; Z90.710 Acquired absence of both cervix and uterus; Z98.890 Other specified postprocedural states; Z79.899 Other long term (current) drug therapy; Z79.4 Long term (current) use of insulin; W19.XXXA Unspecified fall, initial encounter; Y93.01 Activity, walking, marching and hiking; Y92.89 Other specified places as the place of occurrence of the external cause; Y99.8 Other external cause status
CPT/HCPCS: 29125; 36415; 71045; 73110; 73130; 80053; 81003; 84484; 85025; 93005; 96374; 96375; 99284; J1815; J1885; J7030; Q0092

== ENCOUNTER 2019-06-10 18:27 | Inpatient (IN) | payer OTHER ==
[~2019-06-10] VITALS: Ht 152.4 cm; Wt 56.7 kg
[2019-06-10 18:30] VITALS: BP 148/101
--- NOTE | 2019-06-10 19:04 | NUR ---
BIB . AAO X4 C/O LEFT ANKLE PAIN S/P MECHANICAL FALL. PT STATES THAT SHE WAS WALKING ON A PLANK AND SLIPPED AND FELL. PT DENIES HITTING HEAD. ABRASION NOTED TO RIGHT ELBOW AND RIGHT KNEE. +CMS TO LEFT ANKLE, TENDER TO TOUCH. PT HAS CHEST PAIN, SOB, AND NON-PRODUCTIVE COUGH FOR MORE THAN ONE MONTH. DENIES N/V/D; PT'S LEFT FOOD CANNOT BEAR ANY WEIGHT; HR EVEN AND REGULAR; PT DENIES ANY FEVER AT THIS TIME; PATIENT STATES PAIN OF 10/10 AT THIS TIME; VSS; PATIENT POSITIONED FOR COMFORT; HOB ELEVATED; BEDRAILS UP X2; BED DOWN. ER MADE AWARE OF PT STATUS. IS AT BEDSIDE. Addendum: 06/10/19 at 1914 by [facility] PT ALSO C/O DIZZINESS FOR ONE WEEK.
--- NOTE | 2019-06-10 19:12 | NUR ---
REPORT GIVEN TO NOEMI OATES. TRANSFERED CARE AT THIS TIME.
--- NOTE | 2019-06-10 19:13 | NUR ---
REPORT RECEIVED FROM NOEMI AMBROSE. TRANSFER OF CARE AT THIS TIME.
--- NOTE | 2019-06-10 19:28 | NUR ---
DR. HOYOS EVALUATING AT BEDSIDE.
[2019-06-10] MEDS ORDERED: KETOROLAC 15 MG/ML VIAL IVP ONE (19:30)
[2019-06-10] MEDS ORDERED: LIRA6SOL1 SQ (19:32)
[2019-06-10] MEDS ORDERED: INSU100I3 SQ (19:32)
[2019-06-10] MEDS ORDERED: LIRA6SOL SC (19:36)
--- NOTE | 2019-06-10 19:41 | NUR ---
LAB AT BEDSIDE.
[2019-06-10 19:55] LABS: BASOPHILS % (AUTO) 0.5 % (0.0-2.0); EOSINOPHILS # (AUTO) 0.1 K/uL (0-0.4); EOSINOPHILS % (AUTO) 0.7 % (0.0-4.0); HEMATOCRIT 41.9 % (36-48); HEMOGLOBIN 14.1 g/dL (12.0-16.0); LYMPHOCYTES % (AUTO) 19.7 % (20.5-51.1); MEAN CORPUSCULAR HEMOGLOBIN 28 pg (27-31); MEAN CORPUSCULAR HGB CONC 34 g/dL (33-37); MEAN CORPUSCULAR VOLUME 82.7 fL (80-94); MONOCYTES # (AUTO) 0.4 K/uL (0.8-1.0); MONOCYTES % (AUTO) 4.2 % (1.7-9.3); NEUTROPHILS # (AUTO) 7.7 K/uL (1.8-7.7); NEUTROPHILS % (AUTO) 74.9 % (42.2-75.2); PLATELET COUNT (AUTO) 183 K/uL (140-450); RED BLOOD CELL COUNT(AUTO) 5.07 MIL/uL (4.20-5.40); RED CELL DISTRIBUTION WIDTH 14.5 % (11.6-13.7); WHITE BLOOD COUNT (AUTO) 10.4 K/uL (4.8-10.8)
--- NOTE | 2019-06-10 20:00 | NUR ---
PT IS TEARFUL. SHE REPORTS FEELING DEPRESSED AND STATES "TODAY IS REALLY HARD FOR ME BECAUSE MY DAUGHTER TODAY 2 YEARS AGO".
[2019-06-10 20:04] LABS: ANION GAP 11.6 (8-16); CARBON DIOXIDE 28.1 mmol/L (21-32); CREATININE 0.7 mg/dL (0.6-1.3); POTASSIUM 3.7 mmol/L (3.5-5.1)
--- NOTE | 2019-06-10 20:06 | NUR ---
PT TAKEN TO XRAY VIA SHEFALI.
[2019-06-10 20:10] LABS: ALBUMIN 3.7 g/dL (3.4-5.0); TOTAL BILIRUBIN 0.8 mg/dL (0.0-1.0)
--- NOTE | 2019-06-10 20:42 | NUR ---
PT BACK FROM XRAY BY SHEFALI
--- NOTE | 2019-06-10 21:34 | NUR ---
PT STATES TORADOL WAS INEFFECTIVE FOR CHEST PAIN AND ANKLE PAIN. Addendum: 06/10/19 at [address] [facility] [address] HOYOS MADE AWARE.
--- NOTE | 2019-06-10 22:05 | NUR ---
CONSENT FORM FOR CT WITH CONTRAST PROVIDED AND SIGNED.
--- NOTE | 2019-06-10 22:24 | NUR ---
PT TAKEN TO CT VIA RROBERTH.
--- NOTE | 2019-06-10 23:45 | NUR ---
Patient appears to be sleeping comfortably in bed. Vital Signs within normal limits. Respirations even and unlabored.
--- NOTE | 2019-06-11 00:28 | NUR ---
Patient appears to be sleeping comfortably in bed. Vital Signs within normal limits. Respirations even and unlabored. Skin pink, warm, dry. Breathing even, unlabored.
[2019-06-11] MEDS ORDERED: LORazepam 2 MG/ML VIAL IM/IVP PRN (01:20)
[2019-06-11] MEDS ORDERED: DEXTROSE 50% 50 ML SYR IVP PRN (01:20)
[2019-06-11] MEDS ORDERED: NITROGLYCERIN 0.4 MG TAB SL ONE (01:20)
[2019-06-11] MEDS ORDERED: ONDANSETRON 4 MG/2 ML VIAL IM/IVP PRN (01:20)
[2019-06-11] MEDS ORDERED: HYDROcodone/APAP 5/325 MG 1 TAB TAB PO PRN (01:20)
[2019-06-11] MEDS ORDERED: ACETAMINOPHEN 325 MG TAB PO PRN (01:20)
[2019-06-11] MEDS ORDERED: DOCUSATE SODIUM 100 MG GELCAP PO PRN (01:20)
[2019-06-11] MEDS ORDERED: MORPHINE SULFATE 2 MG/ML SYR IVP PRN (01:20)
--- NOTE | 2019-06-11 01:47 | NUR ---
Patient appears to be sleeping comfortably in bed. Vital Signs within normal limits. Respirations even and unlabored.
[2019-06-11] MEDS ORDERED: NACL 0.9% 1,000 ML IV SCH (02:00)
--- NOTE | 2019-06-11 02:02 | NUR ---
Patient will be admitted to care of Dr. Melo. Admited to Tele. Will go to room 121B. Belongings list completed. Report to NOEMI Noel.
--- NOTE | 2019-06-11 02:02 | NUR ---
RECEIVED FROM ER PER SUNSHINE AWAKE AND ALERT. ABLE TO VERBALIZE NEEDS WELL. NO SOB. ROOM AIR 02 SAT AT 97%. LEFT FOOT WITH CESAR BANDAGE RT PAIN COMPLAINT. S/P FALL YESTERDAY AT [facility] [place]. CARE PLANS FOR THE NIGHT DISCUSSED WITH HER AND CALL LIGHT WITH IN REACH. BED ALARM ON. IVF SITES TO [facility] AND [facility]. PATENT. ORIENTED TO ROOM , CALL LIGHT , RAPID RESPONSE AND CARE PLAN. TELEMETRY MONITORING.
[2019-06-11 02:06] VITALS: BP 122/54
[2019-06-11 02:14] LABS: PROTHROMBIN TIME 8.8 secs (10.8-13.4)
--- NOTE | 2019-06-11 02:59 | NUR ---
PROVIDED WITH SANDWICH EARLIER REQUESTED. PRESENTLY READY TO SLEEP. STATED THAT SHE IS TIRED. CALL LIGHT WITH IN REACH.
[2019-06-11 05:28] LABS: PHOSPHORUS 3.2 mg/dL (2.5-4.9)
[2019-06-11 05:29] LABS: CHOL/HDL RATIO 4.7 (1-4.5); THYROID STIMULATING HORMONE 6.52 uIU/mL (0.34-3.74)
[2019-06-11] MEDS: BLOOD GLUCOSE MONITORING 1 DEV DEV FS SCH ×3 (05:33→16:02)
[2019-06-11] MEDS: INSULIN LISPRO SLIDING SCALE 100 UNITS/ML VIAL SUBQ PRN ×2 (05:33→17:34)
[2019-06-11] MEDS ORDERED: MILD SOAP AND WATER TP PRN ×2 (05:50→06:00)
--- NOTE | 2019-06-11 06:07 | NUR ---
RIGHT ELBOW SUPERFICIAL ABRASION CLEANSED WITH MILD SOAP AND WATER AND COVERED IT WITH TEGADERM.
--- NOTE | 2019-06-11 06:43 | NUR ---
WILL ENDORSE TO AM RN FOR CONTINUITY OF CARE WITH OUT ANY COMPLAINTS. AWAKE AND ALERT. NO SOB. NO PAIN COMPLAINTS THIS SHIFT.
--- NOTE | 2019-06-11 07:37 | NUR ---
RECEIVED BED SIDE REPORT FROM THORACIC MEDICINE SPECIALIST RN ESTER. PT IN STABLE CONDITION, A/O X4, JORDANIAN SPEAKING, US TECH DOING US LIVER AT BEDSIDE, EDUCATE PT ON THE IMPORTANCE OF MAINTAINING STABLE BLOOD SUGAR AND FREQUENT CHECKS. OCCULT BLOOD TO BE COLLECTED. NOTIFIED PT ON LETTING ME KNOW WHEN SHE HAS A BM. SKIN INTACT. PT HAS A LOW GRADE TEMP, 100.7, SECOND CHECK 102.8 DONE BY STUDENTS. WILL RECHECK AND GIVE TYLENOL IF NEEDED
--- NOTE | 2019-06-11 08:35 | NUR ---
PT STATED THAT SHE NO LONGER TAKES ESCITALOPRAM. BP 118/64. ASKED IF HE STILL WANTS ME TO GIVE BP MEDS. HE SATED THAT HE WILL ADJUST AND REVIEW MEDS.
[2019-06-11] MEDS ORDERED: ESCITALOPRAM 20 MG TAB PO SCH (09:00)
[2019-06-11] MEDS ORDERED: GABAPENTIN 300 MG CAP PO SCH (09:00)
[2019-06-11] MEDS ORDERED: ATORVASTATIN 20 MG TAB PO SCH ×2 (09:00)
[2019-06-11] MEDS ORDERED: INSULIN LANTUS 100 UNITS/ML 10 ML VIAL SUBQ SCH (09:00)
[2019-06-11] MEDS ORDERED: TRANSPARENT DRESSING TP SCH (09:00)
[2019-06-11] MEDS ORDERED: LISINOPRIL 5 MG TAB PO SCH (09:00)
[2019-06-11] MEDS ORDERED: METOPROLOL 25 MG TAB PO SCH (09:00)
[2019-06-11] MEDS ORDERED: ASPIRIN 81 MG TAB.CHEW PO SCH (09:00)
[2019-06-11] MEDS ORDERED: LISI10TA11 PO (10:15)
[2019-06-11] MEDS ORDERED: CETI-32 PO (10:15)
[2019-06-11] MEDS ORDERED: SODI45SP10 NS (10:15)
[2019-06-11] MEDS ORDERED: GLUC-805 FS (10:15)
[2019-06-11] MEDS ORDERED: ASPI81CT95 PO (10:15)
[2019-06-11] MEDS ORDERED: ATOR20TA40 PO (10:15)
[2019-06-11 11:11] VITALS: BP 118/64
[2019-06-11 12:00] VITALS: BP 106/58
--- NOTE | 2019-06-11 14:55 | NUR ---
PT SLEEPING NEAR NURSE'S STATION. ON RA IN NO RESP DISTRESS AND APPEARS IN NO PAIN. WILL CONTINUE TO MONITOR
[2019-06-11 16:50] VITALS: BP 125/67
--- NOTE | 2019-06-11 17:35 | NUR ---
CHECKED PATIENT'S BLOOD GLUCOSE AND RECEIVED 211. ADMINISTERED 4 UNITS OF HUMALOG PER SLIDING SCALE, PATIENT TOLERATED WELL. PATIENT IS AWAKE AND SITTING UP ON BED. NO SIGNS OF DISTRESS NOTED. SAFETY MEASURES IN PLACE. BED IN LOW POSITION AND CALL LIGHT WITHIN REACH. INSTRUCTED PATIENT TO USE THE CALL LIGHT FOR ANY ASSISTANCE AND PATIENT WAS AWARE.
--- NOTE | 2019-06-11 19:07 | NUR ---
PT DISCHARGED HOME. PT IN STABLE CONDITION, VS STABLE, TELE MONITOR OFF. IV OFF AND PRESSURE APPLIED. NO BLEEDING NOTED. WASHER AND CAPPER MACHINE OPERATOR WHEELED PT TO THE FRONT BACK HOME. DC INSTRUCTIONS GIVEN, PT VERBALIZED UNDERSTANDING AND RX MEDS GIVEN.
[2019-06-11] MEDS ORDERED: traZODone 50 MG TAB PO SCH (21:00)
[2019-06-12] MEDS ORDERED: LORATADINE 10 MG TAB PO SCH (12:00)
[2019-06-13] MEDS ORDERED: LORATADINE 10 MG TAB PO SCH (09:00)
== END 2019-06-11 18:36 | disposition home or self-care (01) | DRG 206 ==
LOC: MED 18:27 → MTU 06-11 01:20
PROVIDERS: ADMIT Family Medicine; ATTEND Family Medicine
DX: M94.0 Chondrocostal junction syndrome [Tietze] (principal); E11.9 Type 2 diabetes mellitus without complications; S50.311A Abrasion of right elbow, initial encounter; X58.XXXA Exposure to other specified factors, initial encounter; S93.402A Sprain of unspecified ligament of left ankle, initial encounter; E11.42 Type 2 diabetes mellitus with diabetic polyneuropathy; E78.5 Hyperlipidemia, unspecified; F32.9 Major depressive disorder, single episode, unspecified; F41.9 Anxiety disorder, unspecified; G47.00 Insomnia, unspecified; N39.3 Stress incontinence (female) (male); R55 Syncope and collapse; Z91.19 Patient's noncompliance with other medical treatment and regimen; Z88.8 Allergy status to other drugs, medicaments and biological substances; Y93.89 Activity, other specified; Y92.89 Other specified places as the place of occurrence of the external cause; Y99.8 Other external cause status; Z83.3 Family history of diabetes mellitus; Z82.49 Family history of ischemic heart disease and other diseases of the circulatory system; Z80.6 Family history of leukemia; Z77.22 Contact with and (suspected) exposure to environmental tobacco smoke (acute) (chronic)
CPT/HCPCS: 36415; 71045; 71275; 73060; 73080; 73562; 73610; 73630; 80053; 82140; 82948; 83036; 83690; 83735; 83880; 84100; 84443; 84484; 85025; 85379; 85610; 85730; 87081; 93005; 93925; 93970; 96374; 99285; J1644; J1815; J1885; J7030; Q0092; Q9967

== ENCOUNTER 2019-06-23 22:41 | Emergency (ER) | payer OTHER ==
[~2019-06-23] VITALS: Ht 144.8 cm; Wt 59.9 kg
[~2019-06-23 22:41] MED LIST changes: +ASPI81CT95 PO; -BISA5TAB79 PO; +CETI-32 PO; -ESCI10TA PO; -ESCI20TA47 PO; -GABA-638 PO; +GLUC-805 FS; +INSU100I3 SQ; -INSU200I4 SQ; -LISI-424 PO; +LISI10TA11 PO; -LISI5TAB18 PO; -SIMV20TA6 PO; +SODI45SP10 NS; -TRAZ-344 PO; -TRAZ-466 PO
[2019-06-23 23:07] VITALS: BP 163/87
--- NOTE | 2019-06-23 23:20 | NUR ---
PT TAKEN TO RR VIA WC. URINE CUP PROVIDED.
--- NOTE | 2019-06-23 23:57 | NUR ---
PT BIB W/C TO ER BED 8
[2019-06-24] VITALS: BP 163/87
--- NOTE | 2019-06-24 | NUR ---
63 Y/O F BIB DAUGHTER WITH C/O L FOOT PAIN. PER PT "WENT TO THE FOOT DOCTOR YESTERDAY AND HE GAVE ME A SHOT OF CORTISOL AND IT JUST MADE MY FOOT HURT WORSE." 10 PAIN, THROBBING. C/O NUMBESS AND TINGLING TO L FOOT. PT HAS HX OF DIABETIC NEUROPATHY. +CMS. ERMD NOTIFIED OF PT STATUS. FAMILY AT BEDSIDE. BED IN LOWEST POSTION. WILL CONTINUE TO MONITOR.
--- NOTE | 2019-06-24 00:30 | NUR ---
DISCUSSED WITH PT IMPORTANCE OF CONTROLLING BLOOD SUGAR AND PROPER DIABETIC DIET. PT EXPRESSED UNDERSTANDING.
[2019-06-24] MEDS ORDERED: MORPHINE SULFATE 4 MG/ML SYR IM ONE (01:05)
[2019-06-24] MEDS ORDERED: ACETAMINOPHEN EXTRA STRENGTH 500 MG TAB PO ONE (01:25)
--- NOTE | 2019-06-24 01:56 | NUR ---
Patient discharged with v/s stable. Written and verbal after care instructions given and explained by Dr. Burrows. Patient verbalized understanding. Ambulatory with steady gait. All questions addressed prior to discharge. Advised to follow up with PMD.
== END 2019-06-24 01:56 | disposition home or self-care (01) ==
LOC: MED 22:41
DX: E11.40 Type 2 diabetes mellitus with diabetic neuropathy, unspecified (principal); Z87.442 Personal history of urinary calculi; Z79.82 Long term (current) use of aspirin; Z79.899 Other long term (current) drug therapy; Z88.1 Allergy status to other antibiotic agents
CPT/HCPCS: 82948; 99282; J2270

== ENCOUNTER 2019-11-17 18:18 | Emergency (ER) | payer OTHER ==
[~2019-11-17] VITALS: Ht 144.8 cm; Wt 59.0 kg
[2019-11-17 19:00] VITALS: BP 151/78
--- NOTE | 2019-11-17 19:03 | NUR ---
TO LOBBY A/W BED AMBULATORY
[2019-11-17] MEDS ORDERED: NACL 0.9% 500 ML IV ONE (21:10)
--- NOTE | 2019-11-17 21:18 | NUR ---
64 Y/O FEMALE PRESENTS TO ED, C/O ABDOMINAL PAIN X1 WEEK. PT STATES PAIN IS 10/10. BS ACTIVE X4 QUADRANTS. SOFT AND NONTENDER. PT DENIES DIARRHEA. LAST BM TODAY. C/O NAUSEA, DENIES VOMITING. PT DENIES TAKING ANY MEDICATIONS PRIOR COMING TO ED. PT VSS. ERMD AWARE. WILL CONTINUE TO MONITOR.
[2019-11-17 21:21] LABS: APPEARANCE,URINE CLEAR (CLEAR); BILIRUBIN,URINE NEGATIVE (NEGATIVE); BLOOD, URINE NEGATIVE (NEGATIVE); COLOR,URINE YELLOW (YELLOW); LEUKOCYTE ESTERASE ,URINE NEGATIVE (NEGATIVE); NITRITE, URINE NEGATIVE (NEGATIVE); UGLUCOSE TRACE (NEGATIVE)
[2019-11-17 22:56] VITALS: BP 133/68
--- NOTE | 2019-11-17 22:56 | NUR ---
DPatient discharged with v/s stable. Written and verbal after care instructions given and explained. Patient alert, oriented and verbalized understanding of instructions. Ambulatory with steady gait. All questions addressed prior to discharge. ID band removed. Patient advised to follow up with PMD. Rx of PROTONIX given. Patient educated on indication of medication including possible reaction and side effects. Opportunity to ask questions provided and answered.
== END 2019-11-17 22:56 | disposition home or self-care (01) ==
LOC: MED 18:18
DX: K29.70 Gastritis, unspecified, without bleeding (principal); E11.9 Type 2 diabetes mellitus without complications; I10 Essential (primary) hypertension; Z87.448 Personal history of other diseases of urinary system; Z79.899 Other long term (current) drug therapy; Z79.82 Long term (current) use of aspirin; Z79.4 Long term (current) use of insulin; Z88.8 Allergy status to other drugs, medicaments and biological substances; Z88.2 Allergy status to sulfonamides
CPT/HCPCS: 29125; 73130; 74176; 81003; 99284; Q0092

== ENCOUNTER 2021-04-08 18:22 | Inpatient (IN) | payer OTHER, SELFPAY ==
[~2021-04-08] VITALS: Ht 139.7 cm; Wt 63.5 kg
[~2021-04-08 18:22] MED LIST changes: -CETI-32 PO; +CETI10TA81 PO; +LISI-486 PO; -LISI10TA11 PO
[2021-04-08 18:29] VITALS: BP 152/75
--- NOTE | 2021-04-08 18:35 | NUR ---
PATIENT AMBULATED WITH STEADY GAIT TO BED 7.
[2021-04-08] MEDS ORDERED: NACL 0.9% 1,000 ML IV ONE (18:50)
--- NOTE | 2021-04-08 18:51 | NUR ---
65 YEAR OLD FEMALE COMPLAINS OF ABDOMINAL PAIN X 1 WEEK. PT STATES PAIN RADIATES TO BACK. PT STATES NAUSEA, BUT NO VOMITTING OR DIARRHEA. PT BS 426 IN TRIAGE. PT AOX4, BREATHING EVEN AND UNLABORED, SKIN WARM AND DRY. BED IN LOWEST POSITION, LOCKED, BED RAIL UPX1. PMH - DM2, APPENDECTOMY
[2021-04-08 19:09] LABS: BASOPHILS % (AUTO) 0.6 % (0.0-2.0); EOSINOPHILS # (AUTO) 0.1 K/uL (0-0.4); EOSINOPHILS % (AUTO) 0.8 % (0.0-4.0); HEMATOCRIT 39.6 % (36-48); HEMOGLOBIN 13.2 g/dL (12.0-16.0); LYMPHOCYTES # (AUTO) 1.7 K/uL (2.5-16.5); LYMPHOCYTES % (AUTO) 19.7 % (20.5-51.1); MEAN CORPUSCULAR HEMOGLOBIN 28 pg (27-31); MEAN CORPUSCULAR HGB CONC 33 g/dL (33-37); MEAN CORPUSCULAR VOLUME 83.5 fL (80-94); MONOCYTES # (AUTO) 0.5 K/uL (0.8-1.0); MONOCYTES % (AUTO) 6.2 % (1.7-9.3); NEUTROPHILS # (AUTO) 6.3 K/uL (1.8-7.7); NEUTROPHILS % (AUTO) 72.7 % (42.2-75.2); PLATELET COUNT (AUTO) 138 K/uL (140-450); RED BLOOD CELL COUNT(AUTO) 4.74 MIL/uL (4.20-5.40); RED CELL DISTRIBUTION WIDTH 14.7 % (11.6-13.7); WHITE BLOOD COUNT (AUTO) 8.7 K/uL (4.8-10.8)
--- NOTE | 2021-04-08 19:13 | NUR ---
RECEIVED REPORT FROM NOEMI STONER FOR CONTINUITY OF CARE
[2021-04-08] MEDS ORDERED: ACETAMINOPHEN EXTRA STRENGTH 500 MG TAB PO ONE (19:30)
[2021-04-08] MEDS ORDERED: ONDANSETRON 4 MG/2 ML VIAL IVP ONE (19:30)
[2021-04-08] MEDS ORDERED: FAMOTIDINE 20 MG TAB PO ONE (19:30)
[2021-04-08 19:32] LABS: PROTHROMBIN TIME 8.9 secs (10.8-13.4)
[2021-04-08 19:38] LABS: ALBUMIN 3.7 g/dL (3.4-5.0); ANION GAP 13.2 (8-16); CREATININE 0.8 mg/dL (0.6-1.3); POTASSIUM 4.2 mmol/L (3.5-5.1); TOTAL BILIRUBIN 0.8 mg/dL (0.0-1.0)
[2021-04-08] MEDS ORDERED: DICYCLOMINE HCL LIQUID 20 MG, ALUMINUM HYD/MAG/SIMETHICONE 30 ML, LIDOCAINE VISCOUS 2% ... PO ONE ×3 (20:20)
[2021-04-08] MEDS ORDERED: INSULIN REGULAR, HUMAN 100 UNIT/ML VIAL SUBQ ONE (20:20)
[2021-04-08] MEDS ORDERED: LIDOCAINE VISCOUS 2% 20 ML UDC ONE (20:33)
[2021-04-08] MEDS ORDERED: DICYCLOMINE HCL LIQUID 10 MG/5 ML UDC ONE (20:34)
[2021-04-08] MEDS ORDERED: ALUMINUM HYD/MAG/SIMETHICONE 30 ML UDC ONE (20:34)
[2021-04-08 21:12] LABS: APPEARANCE,URINE CLEAR (CLEAR); BILIRUBIN,URINE NEGATIVE (NEGATIVE); BLOOD, URINE NEGATIVE (NEGATIVE); COLOR,URINE YELLOW (YELLOW); LEUKOCYTE ESTERASE ,URINE NEGATIVE (NEGATIVE); NITRITE, URINE NEGATIVE (NEGATIVE); PH,URINE 6.5 (5.0-9.0); UGLUCOSE 3+ (NEGATIVE)
[2021-04-08] MEDS ORDERED: NACL 0.9% 500 ML IV ONE (21:15)
--- NOTE | 2021-04-08 21:28 | NUR ---
ULTRASOUND AT BEDSIDE
[2021-04-09] MEDS ORDERED: NACL 0.9% 1,000 ML IV ONE (00:05)
[2021-04-09] MEDS ORDERED: MORPHINE SULFATE 2 MG/ML SYR IVP ONE (00:05)
--- NOTE | 2021-04-09 00:37 | NUR ---
RECEIVED CALL FROM INSURANCE; SPOKE TO MEGHAN
--- NOTE | 2021-04-09 01:02 | NUR ---
Note amol in [facility] - 04/09/21 at 0108 by [email or web address] CALLED YAA PT , TO VERIFY HOME MEDICATIONS.
--- NOTE | 2021-04-09 01:02 | NUR ---
CALLED YAA, PT , TO VERIFY HOME MEDICATIONS.
[2021-04-09] MEDS ORDERED: NYST1CRE8 TP (01:22)
[2021-04-09] MEDS ORDERED: ATOR40TA PO (01:22)
--- NOTE | 2021-04-09 01:32 | NUR ---
COLLECTED SAVAGE SWAB AND HANDED TO CPT KAYLEIGH
--- NOTE | 2021-04-09 02:46 | NUR ---
Patient will be admitted to care of DR. GALLEGO. Admited to TELEMMETRY. Will go to room 104B. Belongings list completed. Report to NOEMI SOSA.
--- NOTE | 2021-04-09 03:05 | NUR ---
PT ARRIVED TO UNIT. ON TELE, PT AOX4 ON ROOM AIR. NO S/S RESPIRATORY DISTRESS. HAS C/O 7/10 ABD PAIN THAT RADIATES [place] TO BACK. WILL CONTACT MD FOR PAIN MEDICATION ORDERS. SKIN WARM DRY INTACT. LUNGS CLEAR. BOWEL SOUNDS ACTIVE. ORIENTED TO ROOM AND HOSPITAL. IV SITE RFA 20G PATENT INTACT. SAFETY MEASURES IN PLACE. CALL LIGHT WITHIN REACH. WILL CONTINUE TO MONITOR. VITAL SIGNS TAKEN, MRSA SWAB OBTAINED. PT NPO STATUS, INFORMED PATIENT. POSTED SIGN ON DOOR. DX: GALLSTONES, INTRACTABLE ABD PAIN, CHEST PAIN, HYPERGLYCEMIA. HX: DM, GALLSTONES, KIDNEY STONES
[2021-04-09 03:10] VITALS: BP 139/61
--- NOTE | 2021-04-09 03:25 | NUR ---
PT C/O ABD PAIN. MD AWARE. AWAITING RESPONSE
[2021-04-09] MEDS: NACL 0.9% 1,000 ML IV SCH ×2 (05:45→21:31)
[2021-04-09] MEDS ORDERED: DEXTROSE 50% 50 ML SYR IVP PRN ×2 (06:10→08:15)
[2021-04-09] MEDS: BLOOD GLUCOSE MONITORING 1 DEV DEV FS SCH ×4 (06:20→21:18)
[2021-04-09] MEDS: INSULIN LISPRO SLIDING SCALE 100 UNITS/ML VIAL SUBQ PRN ×4 (06:22→21:20)
--- NOTE | 2021-04-09 06:22 | NUR ---
2 UNITS HUMALOG INSULIN GIVEN SUBQ FOR BS 180. EDUCATION PROVIDED. NO DISTRESS NOTED. CALL LIGHT WITHIN REACH. WILL CONTINUE TO MONITOR
--- NOTE | 2021-04-09 07:30 | NUR ---
RECEIVED REPORT FROM RESIDENTIAL AIR SEALING TECHNICIAN RN FOR CONTINUITY OF CARE. PATIENT RESTING IN BED IN SUPINE POSITION. AAOX4. ABLE TO MAKE NEEDS KNOWN. SKIN INTACT, BILATERAL FOREARM BRUISES NO OPENING. RESPIRATORY EVEN UNLABORED ON ROOM AIR. IV TO RIGHT AC 20G INFUSING IVF NS@ 50ML/HR. SAFETY MEASURES IN PLACE. CALL LIGHT WITHIN REACH. WILL CONTINUE TO MONITOR.
--- NOTE | 2021-04-09 07:35 | NUR ---
ENDORSED PATIENT TO DAY RN FOR CONTINUITY OF CARE. PATIENT IS IN STABLE CONDITION
[2021-04-09 08:00] VITALS: BP 132/62
[2021-04-09] MEDS ORDERED: guaiFENesin DM 200/20 MG-10 ML 10 ML UDC PO PRN (08:05)
[2021-04-09] MEDS ORDERED: ONDANSETRON 4 MG/2 ML VIAL IM/IVP PRN (08:05)
[2021-04-09] MEDS ORDERED: ZOLPIDEM 5 MG TAB PO PRN (08:05)
[2021-04-09] MEDS ORDERED: DOCUSATE SODIUM 100 MG GELCAP PO PRN (08:05)
[2021-04-09] MEDS ORDERED: POTASSIUM CHLORIDE 40 MEQ, LIDOCAINE MPF 1% 25 MG in NACL 0.9% 250 ML IV PRN (08:05)
[2021-04-09] MEDS ORDERED: ACETAMINOPHEN 325 MG TAB PO PRN (08:05)
[2021-04-09] MEDS ORDERED: INSULIN LISPRO SLIDING SCALE 100 UNITS/ML VIAL SUBQ PRN (08:15)
--- NOTE | 2021-04-09 08:23 | NUR ---
PATIENT WENT TO HAVE TEST OF CT OF ABDOMEN. WILL FOLLOW UP.
[2021-04-09] MEDS: DEXT 5% /NACL 0.9% 1,000 ML IV SCH ×2 (08:45→18:05)
[2021-04-09] MEDS: INSULIN LANTUS 100 UNITS/ML 10 ML VIAL SUBQ SCH (09:00)
[2021-04-09] MEDS: PANTOPRAZOLE 40 MG TABEC PO SCH (09:15)
[2021-04-09] MEDS: ATORVASTATIN 20 MG TAB PO SCH (09:15)
[2021-04-09 10:23] LABS: CHOL/HDL RATIO 2.7 (1-4.5); FREE T4 (FREE THYROXINE) 0.75 ng/dL (0.76-1.46); MAGNESIUM 1.9 mg/dL (1.8-2.4); PHOSPHORUS 2.7 mg/dL (2.5-4.9); THYROID STIMULATING HORMONE 6.38 uIU/mL (0.34-3.74)
[2021-04-09 10:24] LABS: PROTHROMBIN TIME 9.3 secs (10.8-13.4)
--- NOTE | 2021-04-09 10:58 | NUR ---
INFORMED PATIENT'S PRIMARY MD DR. DOMINGUEZ'S OFFICE [phone] THAT PATIENT WAS ADMITTED FOR GALLSTONE, PER PATIENT'S REQUEST. PER MD WALKER, PATIENT HAD APPOINTMENT WITH DR. DOMINGUEZ ON April WITH [facility]. PER AARON, PATIENT NEED TO NOTIFY DR. DOMINGUEZ'S OFFICE AFTER SHE GOT RELEASED TO REQUEST MEDICAL RECORD. PATIENT WAS INFORMED.
[2021-04-09] MEDS: lisinopriL 5 MG TAB PO SCH ×2 (11:12→11:27)
[2021-04-09] MEDS: HYDROcodone/APAP 5/325 MG 1 TAB TAB PO PRN (11:12)
--- NOTE | 2021-04-09 11:12 | NUR ---
NORCO GIVEN FOR ABD PAIN 6/10, RADIATED TO BILATERAL FLANK. PATIENT REQUESTED FOR FOOD, INFORMED PATIENT SHE IS NPO STATUS FOR THE SURGERY. PATIENT VERBALIZED UNDERSTANDING. WILL CONTINUE TO MONITOR.
--- NOTE | 2021-04-09 11:28 | NUR ---
2 UNITS OF HUMALOG GIVEN FOR BS 161. EDUCATION PROVIDED REGARDING THE DIABETES DIET AND MANAGEMENT. PATIENT VERBALIZED UNDERSTANDING.
[2021-04-09] MEDS ORDERED: BLOOD GLUCOSE MONITORING 1 DEV DEV FS SCH (11:30)
--- NOTE | 2021-04-09 11:49 | NUR ---
INFORMED DR. CACERES REGARDING THE NEW REFERRAL SURGEON CONSUL.
[2021-04-09 12:00] VITALS: BP 124/58
--- NOTE | 2021-04-09 12:34 | NUR ---
DR. CACERES STATED THAT HE WILL PERFORM SURGERY TODAY, BUT NOT MENTIONED WHAT TIME, LABS ORDERED.
--- NOTE | 2021-04-09 12:54 | NUR ---
DC PLANNIN YRS OLD FEMALE PATIENT WAS ADMITTED FROM HOME WITH A DX OF GALL STONES, INTRACTABLE ABDOMINAL PAIN, CHEST PAIN HYPERGLYCEMIA. PT HAS A HX OF NEPHROLITHIASIS AND DM. ABDOMINAL ULTRASOUND AND CT ABD SHOWED GALLSTONE. ADMINISTERED IVF, PAIN CONTROL AND GI PROPHYLAXIS. CONSULTED WITH SURGEON FOR POSSIBLE LAP JAS. DC PLAN TO GO HOME WHEN STABLE CM TO FOLLOW
[2021-04-09 13:32] LABS: BASOPHILS % (AUTO) 0.3 % (0.0-2.0); EOSINOPHILS # (AUTO) 0.1 K/uL (0-0.4); EOSINOPHILS % (AUTO) 1.5 % (0.0-4.0); HEMATOCRIT 33.5 % (36-48); HEMOGLOBIN 11.2 g/dL (12.0-16.0); LYMPHOCYTES # (AUTO) 1.7 K/uL (2.5-16.5); LYMPHOCYTES % (AUTO) 24.2 % (20.5-51.1); MEAN CORPUSCULAR HEMOGLOBIN 28 pg (27-31); MEAN CORPUSCULAR HGB CONC 34 g/dL (33-37); MEAN CORPUSCULAR VOLUME 83.4 fL (80-94); MONOCYTES # (AUTO) 0.4 K/uL (0.8-1.0); MONOCYTES % (AUTO) 5.3 % (1.7-9.3); NEUTROPHILS # (AUTO) 4.8 K/uL (1.8-7.7); NEUTROPHILS % (AUTO) 68.7 % (42.2-75.2); PLATELET COUNT (AUTO) 103 K/uL (140-450); RED BLOOD CELL COUNT(AUTO) 4.01 MIL/uL (4.20-5.40); RED CELL DISTRIBUTION WIDTH 14.8 % (11.6-13.7)
[2021-04-09 13:43] LABS: ANION GAP 9.3 (8-16); CARBON DIOXIDE 27.4 mmol/L (21-32); CREATININE 0.5 mg/dL (0.6-1.3); POTASSIUM 3.7 mmol/L (3.5-5.1)
[2021-04-09 13:48] LABS: ALBUMIN 2.7 g/dL (3.4-5.0)
[2021-04-09 16:00] VITALS: BP 117/64
--- NOTE | 2021-04-09 16:41 | NUR ---
DR. CACERES STATED THAT PATIENT CAN HAVE CCHO LOW FAT DIET, SURGERY RESCHEDULED TOMORROW. INFORMED PATIENT, VERBALIZED UNDERSTANDING.
--- NOTE | 2021-04-09 17:45 | NUR ---
2 UNITS OF HUMALOG GIVEN FOR BS LEVEL 165. IVF INFUSING ORDERED.
--- NOTE | 2021-04-09 19:14 | NUR ---
ENDORSED PATIENT TO ALUMNI RELATIONS OFFICER RN FOR CONTINUITY OF CARE. PATIENT IN STABLE CONDITION.
--- NOTE | 2021-04-09 19:15 | NUR ---
RECEIVED REPORT FROM AM SHIFT NURSE. PATIENT AWAKE , ALERT, ORIENTED X4, RESTING COMFORTABLY ON BED. IVF OF D5NS INFUSING 100 ML/HR ON RAC. SAFETY IN PLACE. CALL LIGHT WITHIN REACH. WILL CONTINUE TO MONITOR.
[2021-04-09 19:38] LABS: BARBITURATE, URINE NEGATIVE ng/ml (NEG <=200); BENZODIAZEPINE, URINE NEGATIVE ng/mL (NEG <=200); CANNABINOID, URINE NEGATIVE ng/mL (NEG <=50); COCAINE, URINE NEGATIVE ng/mL (NEG <=300); OPIATE, URINE NEGATIVE ng/mL (NEG <=2000); PHENCYCLIDINE SCREEN,URINE NEGATIVE ng/mL (NEG <=25)
[2021-04-09 20:00] VITALS: BP 126/56
[2021-04-10] VITALS: BP 128/53
[2021-04-10 04:00] VITALS: BP 145/70
[2021-04-10] MEDS: HYDROcodone/APAP 5/325 MG 1 TAB TAB PO PRN (04:46)
--- NOTE | 2021-04-10 04:48 | NUR ---
COMPLAINED OF MODERATE ABDOMINAL PAIN, NORCO PRN ADMINISTERED.
[2021-04-10] MEDS: DEXT 5% /NACL 0.9% 1,000 ML IV SCH ×2 (04:59→14:05)
[2021-04-10] MEDS: LEVOTHYROXINE 0.05 MG TAB PO SCH (06:30)
[2021-04-10 06:35] LABS: BASOPHILS % (AUTO) 0.5 % (0.0-2.0); EOSINOPHILS # (AUTO) 0.1 K/uL (0-0.4); EOSINOPHILS % (AUTO) 1.6 % (0.0-4.0); HEMATOCRIT 35.3 % (36-48); HEMOGLOBIN 11.8 g/dL (12.0-16.0); LYMPHOCYTES # (AUTO) 1.3 K/uL (2.5-16.5); LYMPHOCYTES % (AUTO) 19.2 % (20.5-51.1); MEAN CORPUSCULAR HEMOGLOBIN 28 pg (27-31); MEAN CORPUSCULAR HGB CONC 33 g/dL (33-37); MONOCYTES # (AUTO) 0.3 K/uL (0.8-1.0); MONOCYTES % (AUTO) 4.8 % (1.7-9.3); NEUTROPHILS # (AUTO) 4.9 K/uL (1.8-7.7); NEUTROPHILS % (AUTO) 73.9 % (42.2-75.2); PLATELET COUNT (AUTO) 108 K/uL (140-450); RED BLOOD CELL COUNT(AUTO) 4.21 MIL/uL (4.20-5.40); RED CELL DISTRIBUTION WIDTH 14.7 % (11.6-13.7); WHITE BLOOD COUNT (AUTO) 6.7 K/uL (4.8-10.8)
--- NOTE | 2021-04-10 07:00 | NUR ---
TEXTED MD TO GET AN ORDER FOR OFF TELE MONITOR AND SHOWER ORDER PER PATIENT REQUEST. AWAITING FOR MD TO REPLY.
[2021-04-10 07:15] LABS: ANION GAP 12.5 (8-16); CARBON DIOXIDE 25.7 mmol/L (21-32); CREATININE 0.6 mg/dL (0.6-1.3); POTASSIUM 4.2 mmol/L (3.5-5.1)
--- NOTE | 2021-04-10 07:30 | NUR ---
RECEIVED REPORT FORM SENIOR UI DESIGNER NURSE AT BED SIDE PATIENT ALERT AND ORIENTED X4 .. RESPIRATION EVEN AND UNLABORED AT ROOM AIR. BED IN LOWER POSITION AND CALL RIGHT WITHIN REACH. WILL CONTINUE TO MONITOR PATIENT
--- NOTE | 2021-04-10 07:35 | NUR ---
ENDORSED TO AM SHIFT NURSE FOR CONTINUITY OF CARE , PT IS STABLE.
[2021-04-10] MEDS: INSULIN LISPRO SLIDING SCALE 100 UNITS/ML VIAL SUBQ PRN ×4 (07:46→20:49)
[2021-04-10] MEDS: BLOOD GLUCOSE MONITORING 1 DEV DEV FS SCH ×4 (07:49→21:21)
[2021-04-10 08:00] VITALS: BP 144/65
--- NOTE | 2021-04-10 08:53 | NUR ---
PATIENT HAS BEEN SCREENED AND CATEGORIZED HIGH NUTRITION RISK. PATIENT WILL BE SEEN WITHIN 1-2 DAYS OF ADMISSION. RECEIVED FNS REFERRAL FOR NAUSEA >3 DAYS. 04/10/[address]
[2021-04-10] MEDS: lisinopriL 5 MG TAB PO SCH (09:00)
[2021-04-10] MEDS: PANTOPRAZOLE 40 MG TABEC PO SCH (09:00)
[2021-04-10] MEDS: INSULIN LANTUS 100 UNITS/ML 10 ML VIAL SUBQ SCH (09:53)
--- NOTE | 2021-04-10 09:56 | NUR ---
LANTUS INSULIN 15 UNITS GIVEN FOR BS 224.
--- NOTE | 2021-04-10 09:57 | NUR ---
ECHOCARDIOGRAM IS BEING DONE TO PT NOW.
[2021-04-10] MEDS: ATORVASTATIN 20 MG TAB PO SCH (09:58)
--- NOTE | 2021-04-10 11:45 | NUR ---
SCHEDULE MEDICATION ADMINISTERED PER MD ORDERED. PATIENT TOLERATED WELL.
[2021-04-10] MEDS: MORPHINE SULFATE 2 MG/ML SYR IVP PRN (11:56)
[2021-04-10 12:00] VITALS: BP 141/65
--- NOTE | 2021-04-10 12:04 | NUR ---
MORPHINE 2MG GIVEN FOR PATIENT C/O PAIN 08/01. WILL CONTINUE TO MONITOR PATIENT.
--- NOTE | 2021-04-10 13:31 | NUR ---
WENT TO THE PT'S ROOM AND PT ASKED WHAT TIME IS HER SURGERY AND TOLD PT THAT SHE WILL BE CABLE ARMORER BY SURGERY RNS, PT WAS INFORMED THAT NO JEWELRY SHOULD BE WITH HER AND PT VERBALIZED UNDERSTANDING AND PT PLACED THE JEWELRY ON HER PURSE AND WAS PLACED INSIDE THE BELONGINGS BAG AND WAS PLACED IN THE CABINET. PT VERBALIZED THAT SHE CANNOT REMOVED HER RINGS ON HER LEFT HAND BECAUSE PT SAID THAT IT CANNOT BE REMOVED.
--- NOTE | 2021-04-10 13:34 | NUR ---
04/10/21 RD INITIAL ASSESSMENT COMPLETED PLEASE REFER TO NUTRITION ASSESSMENT UNDER CARE ACTIVITY FOR ESTIMATED NUTRITIONAL NEEDS. 1. CONTINUE NPO MEDICALLY NECESSARY [facility] LOW FAT DIET TOLERATED 3. RD PROVIDED DIABETES NUTRITION EDUCATION, PT ACCEPTED 4. RD TO FOLLOW-UP 3-5 DAYS, MODERATE RISK BRAD WILDE RD
--- NOTE | 2021-04-10 15:19 | NUR ---
PATIENT LEFT UNIT FOR SURGERY AT 1516 STABLE.
[2021-04-10] MEDS ORDERED: BUPIVACAINE-MPF/EPI 0.25% 30 ML VIAL INJ ONE (15:23)
[2021-04-10] MEDS ORDERED: SUGAMMADEX SODIUM 200 MG/2 ML VIAL IV ONE (15:40)
[2021-04-10] MEDS ORDERED: SUCCINYLCHOLINE CHLORIDE 200 MG/10 ML VIAL IVP ONE (15:40)
[2021-04-10] MEDS ORDERED: KETOROLAC 30 MG/ML VIAL ONE (15:40)
[2021-04-10] MEDS ORDERED: fentaNYL citrate 0.05 MG/ML VIAL ONE (15:40)
[2021-04-10] MEDS ORDERED: DEXAMETHASONE 4 MG/ML VIAL ONE (15:40)
[2021-04-10] MEDS ORDERED: HYDROmorphone 1 MG/ML AMP ONE (15:40)
[2021-04-10] MEDS ORDERED: ROCURONIUM 50 MG/5 ML VIAL IV ONE (15:40)
[2021-04-10] MEDS ORDERED: DESFLURANE 240 ML BTL INH ONE (15:40)
[2021-04-10] MEDS ORDERED: PROPOFOL 200 MG/20 ML VIAL IV ONE (15:40)
[2021-04-10] MEDS ORDERED: BLOOD GLUCOSE MONITORING 1 DEV DEV FS ONE (16:55)
[2021-04-10] MEDS ORDERED: ONDANSETRON 4 MG/2 ML VIAL IVP PRN (16:55)
[2021-04-10] MEDS: HYDROmorphone 1 MG/ML AMP IVP PRN ×4 (17:20→17:50)
[2021-04-10] MEDS ORDERED: HYDROmorphone PFS 2 MG/ML SYR ONE (17:25)
[2021-04-10] MEDS: NACL 0.9% 1,000 ML IV SCH (18:42)
--- NOTE | 2021-04-10 18:48 | NUR ---
PATIENT COME BACK TO UNIT AT 1810. STABLE .DYLAN SIGNS TAKEN WITHIN LAVERN LIMIT. OXYGEN 2L GIVEN VIA NC.
--- NOTE | 2021-04-10 18:51 | NUR ---
BLOOD GLUCOSE CHECKED 264 . 6UNITS INSULIN GIVEN .
--- NOTE | 2021-04-10 19:24 | NUR ---
ENDORSED TO PROBATION AGENT NURSE FOR CONTINUE OF CARE.
--- NOTE | 2021-04-10 19:25 | NUR ---
RECEIVED REPORT FROM AM NURSE. PATIENT ON BED SLEEPING WITH O2 VIA NC AT 2LPM TOLERATING WELL. RESPIRATION EVEN UNLABORED, IVF OF NS INFUSING AT 50 ML ON THE RIGHT HAND. VITAL SIGNS MONITORED AND RECORDED. CALL LIGHT WITHIN REACH. WILL CONTINUE TO MONITOR.
[2021-04-10 20:00] VITALS: BP 136/72
--- NOTE | 2021-04-10 22:29 | NUR ---
CHECKED PATIENT, ASLEEP ON BED , NO SOB NOTED AT THIS TIME.
[2021-04-11] VITALS: BP 168/84
[2021-04-11] MEDS: DEXT 5% /NACL 0.9% 1,000 ML IV SCH ×2 (00:05→05:22)
[2021-04-11] MEDS: HYDROcodone/APAP 7.5/325 MG 1 TAB PO PRN ×2 (00:31→19:20)
[2021-04-11 04:00] VITALS: BP 111/53
[2021-04-11] MEDS: LEVOTHYROXINE 0.05 MG TAB PO SCH (06:04)
[2021-04-11] MEDS: INSULIN LISPRO SLIDING SCALE 100 UNITS/ML VIAL SUBQ PRN ×4 (06:21→20:22)
[2021-04-11] MEDS: BLOOD GLUCOSE MONITORING 1 DEV DEV FS SCH ×4 (06:52→20:17)
[2021-04-11 06:55] LABS: HEMATOCRIT 33.5 % (36-48); HEMOGLOBIN 11.4 g/dL (12.0-16.0); LYMPHOCYTES # (AUTO) 0.5 K/uL (2.5-16.5); LYMPHOCYTES % (AUTO) 4.3 % (20.5-51.1); MEAN CORPUSCULAR HEMOGLOBIN 28 pg (27-31); MEAN CORPUSCULAR HGB CONC 34 g/dL (33-37); MEAN CORPUSCULAR VOLUME 82.2 fL (80-94); MONOCYTES # (AUTO) 0.5 K/uL (0.8-1.0); MONOCYTES % (AUTO) 3.9 % (1.7-9.3); NEUTROPHILS # (AUTO) 11.4 K/uL (1.8-7.7); NEUTROPHILS % (AUTO) 91.8 % (42.2-75.2); PLATELET COUNT (AUTO) 118 K/uL (140-450); RED BLOOD CELL COUNT(AUTO) 4.08 MIL/uL (4.20-5.40); RED CELL DISTRIBUTION WIDTH 14.5 % (11.6-13.7); WHITE BLOOD COUNT (AUTO) 12.4 K/uL (4.8-10.8)
--- NOTE | 2021-04-11 07:17 | NUR ---
ENDORSED TO AM NURSE FOR CONTINUITY OF CARE. PT IN STABLE CONDITION.
--- NOTE | 2021-04-11 07:18 | NUR ---
RECEIVED ENDORSEMENT AT THIS TIME PT IS STABLE RESTING IN BED WITH EYES CLOSED. RESP EVEN AND UNLABORED.
[2021-04-11 07:29] LABS: ALBUMIN 2.9 g/dL (3.4-5.0); ANION GAP 11.6 (8-16); CARBON DIOXIDE 25.6 mmol/L (21-32); CREATININE 0.5 mg/dL (0.6-1.3); POTASSIUM 4.2 mmol/L (3.5-5.1)
[2021-04-11 08:00] VITALS: BP 125/55
--- NOTE | 2021-04-11 09:00 | NUR ---
SCHEDULED MEDICATION GIVEN TOLERATED WELL. PT IS AWAKE AND ALERT ORIENTED X 4. ABLE TO COMMUNICATE EFFECTIVELY. LUNG SOUNDS CLEAR NO COUGH ABS IS SOFT AND NONTENDER BS ACTIVE X 4. DENIES ANY DIFFICULTY. HAS 4 ABD INCISION THAT ARE CLEAN AND DRY NO REDNESS NO DISCHARGE. PT REPORTS PAIN 9/10 MORPHINE IVP WAS GIVEN, PER STANDING ORDER. PT REMAINS ON 2L NC AT 98% SP02. PT EMOTIONAL ABOUT SITUATIONAL CRISIS MOTHER IS CURRENTLY GOING TO START HOSPICE CARE. EMOTIONAL SUPPORT PROVIDED. PT CONTINUES TO RECEIVE IVF TO RIGHT HAND WITH NO ISSUES. CALL LIGHT WITHIN REACH. CALLED ROOM AND WAS ASSISTED WITH ANSWERING PHONE. SAFETY MEASURES IN PLACE.
[2021-04-11] MEDS: PANTOPRAZOLE 40 MG TABEC PO SCH (09:29)
[2021-04-11] MEDS: lisinopriL 5 MG TAB PO SCH (09:29)
[2021-04-11] MEDS: ATORVASTATIN 20 MG TAB PO SCH (09:30)
[2021-04-11] MEDS: MORPHINE SULFATE 2 MG/ML SYR IVP PRN ×2 (09:34→15:46)
[2021-04-11] MEDS: INSULIN LANTUS 100 UNITS/ML 10 ML VIAL SUBQ SCH (09:47)
--- NOTE | 2021-04-11 10:15 | NUR ---
RESTING IN BED, DENIES ANY PAIN PRN EFFECTIVE
--- NOTE | 2021-04-11 11:52 | NUR ---
NEW RECOMMENDATIONS FOR [facility] 60GM DIET WERE APPROVED BY DR. GALLEGO, RECEIVED TORB.
[2021-04-11] MEDS: NACL 0.9% 1,000 ML IV SCH (11:56)
[2021-04-11 12:00] VITALS: BP 109/67
--- NOTE | 2021-04-11 12:03 | NUR ---
BS 254 6 UNITS OF HUMALOG GIVEN. TOLERATED WELL. DENIES ANY DISTRESS AT THIS TIME.
--- NOTE | 2021-04-11 14:30 | NUR ---
PATIENT'S AT BEDSIDE PER CHARGE NURSE. ALL NEEDS MET
[2021-04-11 16:00] VITALS: BP 126/54
--- NOTE | 2021-04-11 16:25 | NUR ---
BS 246 COVERAGE GIVEN TOLERATED WELL. AT BEDSIDE ALL NEEDS MET. PT REPORTS PAIN RELIEF FROM MEDICATION.
--- NOTE | 2021-04-11 18:20 | NUR ---
PROVISION OF CARE PROVIDED. ALL NEEDS MET IV FLUIDS DC TOLERATING MEALS WELL.
--- NOTE | 2021-04-11 19:23 | NUR ---
PT ENDORSED TO THRESHING MACHINE OPERATOR DURING REPORT PT VERBALIZED ELEVATED PAIN . PT WAS GIVEN NORCO AT THIS TIME. ENDORSED PAIN REASSESSMENT TO THRESHING MACHINE OPERATOR RN. REMAINS ON BEDSIDE.
--- NOTE | 2021-04-11 19:24 | NUR ---
RECEIVING PATIENT FROM AM NURSE FOR CONTINUITY OF CARE. PATIENT IS ON TELE MONITOR. A/A/O X4. RESPIRATORY EVEN AND UNLABORED, ON 3L OXYGEN VIA NC, O2 SAT 95%. NO SIGN OF DISTRESS NOTED. BOWEL SOUND ACTIVE, LAST BOWEL MOVEMENT WAS 04/09/2021. ABDOMEN NOTED WITH 4 INCISIONS, CLEAN, DRY, NO DISCHARGE, NON DRESSING NOTED. SKIN WARM, DRY, NON-DIAPHORETIC, IV ON RIGHT HAND 20G, SALINE LOCK, PATENT AND INTACT. PATIENT COMPLAINS PAIN 10/10 RELATED TO HER LAP JAS WAS DONE 04/10/2021. PRN PAIN MEDICATION WAS GIVEN BY AM NURSE. NO OTHER COMPLAINS AT THIS TIME. PATIENT ABLE TO MAKE NEEDS KNOWN. FAMILY AT BEDSIDE. PLAN OF CARE DISCUSSED, PATIENT AND FAMILY VERBALIZED UNDERSTANDING. PRECAUTION IN PLACE. CALL LIGHT WITHIN REACH. WILL CONTINUE TO MONITOR.
[2021-04-11 20:00] VITALS: BP 167/68
--- NOTE | 2021-04-11 20:00 | NUR ---
ASSIST PATIENT WITH BEDPAN. PATIENT TOLERATED WELL.
--- NOTE | 2021-04-11 20:17 | NUR ---
BLOOD SUGAR CHECK 313. 8UNITS OF INSULIN WAS GIVEN. PATIENT TOLERATED WELL. PATIENT REPORTS NO PAIN WHEN SLEEP BUT IT BOTHERS HER WHEN SHE AWAKE. PATIENT REQUESTS SLEEP MEDICATION. PRN GIVEN WITH EDUCATION. PATIENT VERBALIZED UNDERSTANDING. CALL LIGHT WITHIN REACH. WILL CONTINUE TO MONITOR.
--- NOTE | 2021-04-11 22:00 | NUR ---
PATIENT IS RESTING IN BED, NO SIGN OF DISTRESS NOTED. REPORT PAIN TOLERABLE. CALL LIGHT WITHIN REACH. WILL CONTINUE TO MONITOR.
[2021-04-12] VITALS: BP 101/47
--- NOTE | 2021-04-12 | NUR ---
ROUND CHECK. PATIENT IS SLEEPING. CHEST RISE AND FALL NOTED. NO SIGN OF RESPIRATORY DISTRESS NOTED, O2 SAT 98%. CALL LIGHT WITHIN REACH. WILL CONTINUE TO MONITOR.
--- NOTE | 2021-04-12 02:00 | NUR ---
ROUND CHECK. PATIENT IS SLEEPING, CHEST RISE AND FALL, O2 SAT 100%, NO SIGN OF DISTRESS NOTED. CALL LIGHT WITHIN REACH. WILL CONTINUE TO MONITOR.
[2021-04-12 04:00] VITALS: BP 113/45
--- NOTE | 2021-04-12 04:00 | NUR ---
ROUND CHECK. PATIENT IS SLEEPING, CHEST RISE AND FALL, NO SIGN OF DISTRESS NOTED, O2 SAT 99%. CALL LIGHT WITHIN REACH. WILL CONTINUE TO MONITOR.
[2021-04-12] MEDS: LEVOTHYROXINE 0.05 MG TAB PO SCH (05:50)
--- NOTE | 2021-04-12 06:00 | NUR ---
ROUND CHECK. PATIENT IS SLEEPING, CHEST RISE AND FALL, O2 SAT 98%, NO SIGN OF DISTRESS NOTED. TEXT DR MONTESINOS TO NOTIFY PATIENT'S BLOOD PRESSURE TRENDING DOWN. WAITING TO RESPONSE.
[2021-04-12] MEDS: BLOOD GLUCOSE MONITORING 1 DEV DEV FS SCH ×2 (06:39→11:07)
[2021-04-12] MEDS: INSULIN LISPRO SLIDING SCALE 100 UNITS/ML VIAL SUBQ PRN ×2 (06:39→11:10)
--- NOTE | 2021-04-12 06:39 | NUR ---
BLOOD SUGAR CHECK 185. 2 UNITS INSULIN WAS GIVEN WITH EDUCATION. PATIENT VERBALIZED UNDERSTANDING. CALL LIGHT WITHIN REACH. WILL CONTINUE TO MONITOR.
[2021-04-12 06:42] LABS: BASOPHILS % (AUTO) 0.3 % (0.0-2.0); EOSINOPHILS # (AUTO) 0.1 K/uL (0-0.4); EOSINOPHILS % (AUTO) 1.6 % (0.0-4.0); HEMATOCRIT 31.3 % (36-48); HEMOGLOBIN 10.5 g/dL (12.0-16.0); LYMPHOCYTES # (AUTO) 1.6 K/uL (2.5-16.5); LYMPHOCYTES % (AUTO) 21.5 % (20.5-51.1); MEAN CORPUSCULAR HEMOGLOBIN 28 pg (27-31); MEAN CORPUSCULAR HGB CONC 34 g/dL (33-37); MONOCYTES # (AUTO) 0.5 K/uL (0.8-1.0); MONOCYTES % (AUTO) 6.6 % (1.7-9.3); NEUTROPHILS # (AUTO) 5.2 K/uL (1.8-7.7); PLATELET COUNT (AUTO) 114 K/uL (140-450); RED BLOOD CELL COUNT(AUTO) 3.72 MIL/uL (4.20-5.40); RED CELL DISTRIBUTION WIDTH 14.2 % (11.6-13.7); WHITE BLOOD COUNT (AUTO) 7.4 K/uL (4.8-10.8)
--- NOTE | 2021-04-12 06:43 | NUR ---
RECEIVED ORDER FROM DR MONTESINOS, 500ML NS BOLUS. WILL FOLLOW ORDER.
[2021-04-12] MEDS ORDERED: NACL 0.9% 500 ML IV ONE (06:45)
[2021-04-12 06:54] LABS: CARBON DIOXIDE 26.7 mmol/L (21-32); CREATININE 0.5 mg/dL (0.6-1.3); POTASSIUM 3.7 mmol/L (3.5-5.1)
--- NOTE | 2021-04-12 07:20 | NUR ---
ENDORSED PATIENT TO AM NURSE FOR CONTINUITY OF CARE. PATIENT IS STABLE.
--- NOTE | 2021-04-12 07:30 | NUR ---
RECEIVED REPORT FROM NIGHT NURSE PATIENT IS SLEEPING ON 2LPM OXYGEN VIA NC SATURATION AT 100%, USES THE BEDPAN, S/P LAP JAS WITH 4 DERMABOND OPEN TO AIR, IV INTACT ON RIGHT HAND SALINE LOCK, S/P SODUIM CHLORIDE 500 ML BOLUS, LAST BLOOD SUGAR 185 MG/DL AND LAST BOWEL MOVEMENT 04/09/21. SAFETY MEASURES IN PLACE AND CALL LIGHT WITHIN REACH. WILL CONTINUE TO MONITOR.
[2021-04-12 08:00] VITALS: BP 141/66
[2021-04-12] MEDS: lisinopriL 5 MG TAB PO SCH (08:46)
[2021-04-12] MEDS: ATORVASTATIN 20 MG TAB PO SCH (08:46)
[2021-04-12] MEDS: PANTOPRAZOLE 40 MG TABEC PO SCH (08:47)
[2021-04-12] MEDS: INSULIN LANTUS 100 UNITS/ML 10 ML VIAL SUBQ SCH (08:50)
--- NOTE | 2021-04-12 08:50 | NUR ---
MEDICATION DUE GIVEN CHECK VITAL SIGNS BP 141/66 RI 72 AND CHECK BLOOD SUGAR PRIOR TO INSULIN LANTHUS 15 UNITS 135 MG/DL.PAT REQUESTED FOR BLADDER SCAN WITH 0 VOLUME. SAFETY MEASURES IN PLACE AND CALL LIGHT WITHIN REACH. WILL CONTINUE TO MONITOR.
--- NOTE | 2021-04-12 10:20 | NUR ---
MADE ROUND AT THIS TIME PT IS SLEEPING AND NO DISTRESS NOTED.
--- NOTE | 2021-04-12 11:13 | NUR ---
BLOOD SUGAR 181 MG/DL INSULIN COVERAGE OF 2UNITS GIVEN TO PATIENT.
[2021-04-12 12:00] VITALS: BP 111/60
--- NOTE | 2021-04-12 12:05 | NUR ---
MADE ROUND AND ASSISTED PATIENT TO THE BATHROOM ABLE TO WALK ON ROOM AIR SATURATING 95%. ENCOURAGED PT TO WALK AND SIT TO PREVENT COMPLICATIONS.
[2021-04-12] MEDS ORDERED: LISI-648 PO (12:34)
[2021-04-12] MEDS ORDERED: DOCU-299 PO (12:34)
[2021-04-12] MEDS ORDERED: SYN.05 PO (12:34)
[2021-04-12] MEDS ORDERED: PANT40EC56 PO (12:34)
--- NOTE | 2021-04-12 14:25 | NUR ---
DISCHARGED INSTRUCTIONS GIVEN TO PATIENT AT BEDSIDE, ENCOURAGED TO CONTINUE MEDICATIONS AND TO FOLLOW UP WITH PCP AND DR CACERES IN 1 WEEK AND ENCOURAGE TO EXERCISE AND WALK AND NO HEAVY LIFTING, INSTRUCTED TO SEEK MEDICAL HELP INCASE OF EMERGENCIES. TAKE PAIN MEDICATIONS NEEDED. IV COMPLETE AND NO BLEEDING REMOVED ID BANDS AND TELEMONITOR RETURNED TO STEAM FITTER SUPERVISOR MAINTENANCE.PRESCRIPTION GIVEN TO PATIENT. CHANGED PT CLOTHES AND PT TOOK ALL HER BELONGINGS AND ANSWERED ALL PT QUESTION. ESCORTED TO FRONT LOBBY ACCOMPANIED BY HER . PT IS DISCHARGED TO HOME AND PT IS STABLE.
== END 2021-04-12 14:25 | disposition home or self-care (01) | DRG 417 ==
LOC: MED 18:22 → MTU 04-09 01:26
PROVIDERS: ADMIT Family Medicine; ATTEND Family Medicine
PROC: 0FT44ZZ Resection of Gallbladder, Percutaneous Endoscopic Approach (ICD-10-PCS; principal; 2021-04-10 13:00)
DX: K80.00 Calculus of gallbladder with acute cholecystitis without obstruction (principal); E43 Unspecified severe protein-calorie malnutrition; I10 Essential (primary) hypertension; E11.65 Type 2 diabetes mellitus with hyperglycemia; E78.5 Hyperlipidemia, unspecified; D69.6 Thrombocytopenia, unspecified; E03.9 Hypothyroidism, unspecified; E66.9 Obesity, unspecified; I70.90 Unspecified atherosclerosis; K57.30 Diverticulosis of large intestine without perforation or abscess without bleeding; Z20.822 Contact with and (suspected) exposure to COVID-19; I87.8 Other specified disorders of veins; Z88.2 Allergy status to sulfonamides; Z88.8 Allergy status to other drugs, medicaments and biological substances; Z87.442 Personal history of urinary calculi; Z98.51 Tubal ligation status; Z83.3 Family history of diabetes mellitus; Z80.6 Family history of leukemia; Z79.4 Long term (current) use of insulin; Z68.32 Body mass index [BMI] 32.0-32.9, adult
CPT/HCPCS: 36415; 71045; 76705; 80048; 80053; 80305; 81003; 82150; 82803; 82948; 83036; 83690; 83735; 83880; 84100; 84436; 84439; 84443; 84479; 84484; 85025; 85610; 85730; 86886; 86900; 86901; 87081; 93005; 96361; 96372; 96374; 96375; 99285; J0330; J0694; J1100; J1170; J1815; J1885; J2270; J2405; J2704; J3010; J3490; J7030

== ENCOUNTER 2021-05-11 20:54 | Inpatient (IN) | payer OTHER, SELFPAY ==
[~2021-05-11] VITALS: Ht 147.3 cm; Wt 63.0 kg
[~2021-05-11 20:54] MED LIST changes: -ASPI81CT95 PO; -ATOR20TA40 PO; +ATOR40TA PO; +CEPH250C16 PO; -CETI10TA81 PO; +HYDR-5191 PO; -LISI-486 PO; +LISI-648 PO; +PANT40EC56 PO; -SODI45SP10 NS; +SYN.05 PO
[2021-05-11 20:55] VITALS: BP 162/71
[2021-05-11] MEDS ORDERED: ASPIRIN 325 MG TAB PO ONE (21:55)
[2021-05-11] MEDS ORDERED: MORPHINE SULFATE 4 MG/ML SYR IVP ONE (21:55)
[2021-05-11 22:16] LABS: APPEARANCE,URINE CLEAR (CLEAR); BILIRUBIN,URINE NEGATIVE (NEGATIVE); BLOOD, URINE TRACE-L (NEGATIVE); COLOR,URINE YELLOW (YELLOW); LEUKOCYTE ESTERASE ,URINE NEGATIVE (NEGATIVE); NITRITE, URINE NEGATIVE (NEGATIVE); UGLUCOSE 3+ (NEGATIVE)
[2021-05-11 22:35] LABS: RBC,URINE 0-5 /HPF (0-5); WBC,URINE 0-5 /HPF (0-5)
[2021-05-11 22:39] LABS: BASOPHILS % (AUTO) 0.6 % (0.0-2.0); EOSINOPHILS # (AUTO) 0.1 K/uL (0-0.4); HEMATOCRIT 39.5 % (36-48); HEMOGLOBIN 13.1 g/dL (12.0-16.0); LYMPHOCYTES # (AUTO) 1.8 K/uL (2.5-16.5); LYMPHOCYTES % (AUTO) 22.3 % (20.5-51.1); MEAN CORPUSCULAR HEMOGLOBIN 28 pg (27-31); MEAN CORPUSCULAR HGB CONC 33 g/dL (33-37); MONOCYTES # (AUTO) 0.5 K/uL (0.8-1.0); MONOCYTES % (AUTO) 6.3 % (1.7-9.3); NEUTROPHILS # (AUTO) 5.7 K/uL (1.8-7.7); NEUTROPHILS % (AUTO) 69.8 % (42.2-75.2); PLATELET COUNT (AUTO) 149 K/uL (140-450); RED CELL DISTRIBUTION WIDTH 14.9 % (11.6-13.7); WHITE BLOOD COUNT (AUTO) 8.2 K/uL (4.8-10.8)
[2021-05-11 23:06] LABS: ALBUMIN 3.7 g/dL (3.4-5.0); ANION GAP 14.3 (8-16); CREATININE 0.9 mg/dL (0.6-1.3); POTASSIUM 4.3 mmol/L (3.5-5.1); TOTAL BILIRUBIN 0.9 mg/dL (0.0-1.0)
[2021-05-11] MEDS ORDERED: NACL 0.9% 1,000 ML IV ONE (23:20)
[2021-05-11] MEDS ORDERED: INSULIN REGULAR, HUMAN 100 UNIT/ML VIAL SUBQ ONE (23:20)
[2021-05-12] MEDS ORDERED: HYDROcodone/APAP 5/325 MG 1 TAB TAB PO PRN (00:40)
[2021-05-12] MEDS ORDERED: NACL 0.9% 1,000 ML IV ONE (00:40)
[2021-05-12] MEDS ORDERED: MORPHINE SULFATE 2 MG/ML SYR IVP PRN (00:40)
[2021-05-12 01:16] LABS: BARBITURATE, URINE NEGATIVE ng/ml (NEG <=200); BENZODIAZEPINE, URINE NEGATIVE ng/mL (NEG <=200); CANNABINOID, URINE NEGATIVE ng/mL (NEG <=50); COCAINE, URINE NEGATIVE ng/mL (NEG <=300); OPIATE, URINE NEGATIVE ng/mL (NEG <=2000); PHENCYCLIDINE SCREEN,URINE NEGATIVE ng/mL (NEG <=25)
[2021-05-12 07:42] VITALS: BP 158/69
[2021-05-12] MEDS ORDERED: POTASSIUM CHLORIDE 10 MEQ TABER PO PRN (08:45)
[2021-05-12] MEDS ORDERED: MAG SULF 2000 MG/WATER PREMIX 50 ML IV PRN (08:45)
[2021-05-12] MEDS ORDERED: DEXTROSE 50% 50 ML SYR IVP PRN (08:50)
[2021-05-12] MEDS ORDERED: NITROGLYCERIN 0.4 MG TAB SL PRN (08:50)
[2021-05-12 08:59] LABS: BASOPHILS % (AUTO) 0.2 % (0.0-2.0); EOSINOPHILS # (AUTO) 0.1 K/uL (0-0.4); EOSINOPHILS % (AUTO) 2.4 % (0.0-4.0); HEMATOCRIT 33.4 % (36-48); HEMOGLOBIN 11.1 g/dL (12.0-16.0); LYMPHOCYTES # (AUTO) 1.6 K/uL (2.5-16.5); LYMPHOCYTES % (AUTO) 27.3 % (20.5-51.1); MEAN CORPUSCULAR HEMOGLOBIN 28 pg (27-31); MEAN CORPUSCULAR HGB CONC 33 g/dL (33-37); MONOCYTES # (AUTO) 0.4 K/uL (0.8-1.0); NEUTROPHILS # (AUTO) 3.8 K/uL (1.8-7.7); NEUTROPHILS % (AUTO) 63.1 % (42.2-75.2); PLATELET COUNT (AUTO) 129 K/uL (140-450); RED BLOOD CELL COUNT(AUTO) 3.98 MIL/uL (4.20-5.40); WHITE BLOOD COUNT (AUTO) 5.9 K/uL (4.8-10.8)
[2021-05-12] MEDS: lisinopriL 5 MG TAB PO SCH (09:11)
[2021-05-12] MEDS: ATORVASTATIN 20 MG TAB PO SCH (09:11)
[2021-05-12] MEDS: METOPROLOL 25 MG TAB PO SCH ×2 (09:12→21:34)
[2021-05-12] MEDS: ASPIRIN 81 MG TAB.CHEW PO SCH (09:12)
[2021-05-12] MEDS: PANTOPRAZOLE 40 MG TABEC PO SCH (09:12)
[2021-05-12 09:30] LABS: CARBON DIOXIDE 25.1 mmol/L (21-32); CREATININE 0.5 mg/dL (0.6-1.3); POTASSIUM 4.1 mmol/L (3.5-5.1)
[2021-05-12] MEDS: BLOOD GLUCOSE MONITORING 1 DEV DEV FS SCH ×3 (11:55→21:43)
[2021-05-12] MEDS: INSULIN LISPRO SLIDING SCALE 100 UNITS/ML VIAL SUBQ PRN ×3 (11:55→21:25)
[2021-05-12 12:00] VITALS: BP 141/77
[2021-05-12] MEDS ORDERED: FLUCONAZOLE 100 MG TAB PO SCH (15:10)
[2021-05-12 16:00] VITALS: BP 108/55
[2021-05-12 20:00] VITALS: BP 129/58
[2021-05-12] MEDS: SERTRALINE 50 MG TAB PO SCH (21:33)
[2021-05-12] MEDS ORDERED: CRUSHER, PILL MC ONE (21:37)
[2021-05-13] VITALS: BP 99/43
[2021-05-13 04:00] VITALS: BP 128/56
[2021-05-13] MEDS: INSULIN LISPRO SLIDING SCALE 100 UNITS/ML VIAL SUBQ PRN ×4 (06:20→20:49)
[2021-05-13] MEDS: LEVOTHYROXINE 0.05 MG TAB PO SCH (06:30)
[2021-05-13] MEDS: BLOOD GLUCOSE MONITORING 1 DEV DEV FS SCH ×4 (06:56→20:34)
[2021-05-13 08:00] VITALS: BP 133/65
[2021-05-13] MEDS ORDERED: REGADENOSON 0.4 MG/5 ML SYR IV SCH (09:00)
[2021-05-13] MEDS: lisinopriL 5 MG TAB PO SCH (09:00)
[2021-05-13] MEDS: ASPIRIN 81 MG TAB.CHEW PO SCH ×2 (09:00→09:24)
[2021-05-13] MEDS: PANTOPRAZOLE 40 MG TABEC PO SCH ×2 (09:00→09:24)
[2021-05-13] MEDS: ATORVASTATIN 20 MG TAB PO SCH ×2 (09:00→09:24)
[2021-05-13] MEDS: METOPROLOL 25 MG TAB PO SCH ×2 (09:00→20:38)
[2021-05-13 09:17] LABS: BASOPHILS % (AUTO) 0.3 % (0.0-2.0); EOSINOPHILS # (AUTO) 0.1 K/uL (0-0.4); EOSINOPHILS % (AUTO) 1.2 % (0.0-4.0); HEMATOCRIT 36.5 % (36-48); HEMOGLOBIN 12.3 g/dL (12.0-16.0); LYMPHOCYTES # (AUTO) 1.2 K/uL (2.5-16.5); LYMPHOCYTES % (AUTO) 15.8 % (20.5-51.1); MEAN CORPUSCULAR HEMOGLOBIN 28 pg (27-31); MEAN CORPUSCULAR HGB CONC 34 g/dL (33-37); MONOCYTES # (AUTO) 0.4 K/uL (0.8-1.0); MONOCYTES % (AUTO) 5.7 % (1.7-9.3); PLATELET COUNT (AUTO) 140 K/uL (140-450); RED BLOOD CELL COUNT(AUTO) 4.45 MIL/uL (4.20-5.40); RED CELL DISTRIBUTION WIDTH 14.6 % (11.6-13.7); WHITE BLOOD COUNT (AUTO) 7.9 K/uL (4.8-10.8)
[2021-05-13 09:30] LABS: ANION GAP 9.7 (8-16); CARBON DIOXIDE 26.4 mmol/L (21-32); CREATININE 0.7 mg/dL (0.6-1.3); POTASSIUM 4.1 mmol/L (3.5-5.1)
[2021-05-13 09:36] LABS: MAGNESIUM 1.9 mg/dL (1.8-2.4); PHOSPHORUS 2.8 mg/dL (2.5-4.9)
[2021-05-13 12:00] VITALS: BP 133/65
[2021-05-13 16:00] VITALS: BP 125/64
[2021-05-13 20:00] VITALS: BP 140/65
[2021-05-13] MEDS: SERTRALINE 50 MG TAB PO SCH (20:39)
[2021-05-13] MEDS ORDERED: INSULIN LANTUS 100 UNITS/ML 10 ML VIAL SUBQ SCH (21:00)
[2021-05-14] VITALS: BP 118/53
[2021-05-14 04:00] VITALS: BP 127/61
[2021-05-14] MEDS: LEVOTHYROXINE 0.05 MG TAB PO SCH (06:30)
[2021-05-14] MEDS: INSULIN LISPRO SLIDING SCALE 100 UNITS/ML VIAL SUBQ PRN ×2 (06:51→12:13)
[2021-05-14] MEDS: BLOOD GLUCOSE MONITORING 1 DEV DEV FS SCH ×2 (06:51→12:13)
[2021-05-14 07:26] LABS: BASOPHILS % (AUTO) 0.4 % (0.0-2.0); EOSINOPHILS # (AUTO) 0.1 K/uL (0-0.4); EOSINOPHILS % (AUTO) 1.3 % (0.0-4.0); HEMATOCRIT 36.1 % (36-48); HEMOGLOBIN 12.1 g/dL (12.0-16.0); LYMPHOCYTES # (AUTO) 1.3 K/uL (2.5-16.5); LYMPHOCYTES % (AUTO) 20.8 % (20.5-51.1); MEAN CORPUSCULAR HEMOGLOBIN 28 pg (27-31); MEAN CORPUSCULAR HGB CONC 34 g/dL (33-37); MEAN CORPUSCULAR VOLUME 82.4 fL (80-94); MONOCYTES # (AUTO) 0.4 K/uL (0.8-1.0); NEUTROPHILS # (AUTO) 4.6 K/uL (1.8-7.7); NEUTROPHILS % (AUTO) 71.5 % (42.2-75.2); PLATELET COUNT (AUTO) 145 K/uL (140-450); RED BLOOD CELL COUNT(AUTO) 4.38 MIL/uL (4.20-5.40); RED CELL DISTRIBUTION WIDTH 14.7 % (11.6-13.7); WHITE BLOOD COUNT (AUTO) 6.4 K/uL (4.8-10.8)
[2021-05-14 07:35] LABS: ANION GAP 11.4 (8-16); CARBON DIOXIDE 24.5 mmol/L (21-32); CREATININE 0.6 mg/dL (0.6-1.3); POTASSIUM 3.9 mmol/L (3.5-5.1)
[2021-05-14 07:39] LABS: MAGNESIUM 1.9 mg/dL (1.8-2.4); PHOSPHORUS 3.7 mg/dL (2.5-4.9)
[2021-05-14 08:00] VITALS: BP 145/67
[2021-05-14] MEDS: PANTOPRAZOLE 40 MG TABEC PO SCH (09:00)
[2021-05-14] MEDS: lisinopriL 5 MG TAB PO SCH (09:07)
[2021-05-14] MEDS: ATORVASTATIN 20 MG TAB PO SCH (09:07)
[2021-05-14] MEDS: ASPIRIN 81 MG TAB.CHEW PO SCH (09:07)
[2021-05-14] MEDS: METOPROLOL 25 MG TAB PO SCH (09:07)
[2021-05-14] MEDS ORDERED: INSU100I3 SQ (10:00)
[2021-05-14] MEDS ORDERED: NITR0.4T95 SL (10:00)
[2021-05-14] MEDS ORDERED: ASPI-1822 PO (10:01)
== END 2021-05-14 12:40 | disposition home or self-care (01) | DRG 313 ==
LOC: MED 20:54 → MTU 05-12 00:46 → MIC 05-12 07:16 → MTU 05-12 14:25
DX: R07.9 Chest pain, unspecified (principal); E11.00 Type 2 diabetes mellitus with hyperosmolarity without nonketotic hyperglycemic-hyperosmolar coma (NKHHC); D68.59 Other primary thrombophilia; F41.9 Anxiety disorder, unspecified; I10 Essential (primary) hypertension; E11.65 Type 2 diabetes mellitus with hyperglycemia; E78.5 Hyperlipidemia, unspecified; E03.9 Hypothyroidism, unspecified; D69.6 Thrombocytopenia, unspecified; Z20.822 Contact with and (suspected) exposure to COVID-19; K57.90 Diverticulosis of intestine, part unspecified, without perforation or abscess without bleeding; I70.90 Unspecified atherosclerosis; I25.10 Atherosclerotic heart disease of native coronary artery without angina pectoris; Z88.2 Allergy status to sulfonamides; Z88.8 Allergy status to other drugs, medicaments and biological substances; Z79.899 Other long term (current) drug therapy; Z90.49 Acquired absence of other specified parts of digestive tract; Z83.3 Family history of diabetes mellitus; Z80.6 Family history of leukemia; Z82.49 Family history of ischemic heart disease and other diseases of the circulatory system; Z87.442 Personal history of urinary calculi
CPT/HCPCS: 36415; 71045; 71275; 80048; 80053; 80305; 81001; 82533; 82948; 83690; 83735; 83880; 84100; 84443; 84484; 85025; 85379; 87081; 93005; 93017; 93925; 93970; 96361; 96372; 96374; 99285; A9500; A9502; J1644; J1815; J2270; J2785; Q9967

== ENCOUNTER 2021-06-21 20:28 | Emergency (ER) | payer OTHER, SELFPAY ==
[~2021-06-21] VITALS: Ht 147.3 cm; Wt 63.5 kg
[~2021-06-21 20:28] MED LIST changes: +ASPI-1822 PO; -CEPH250C16 PO; +NITR0.4T95 SL
[2021-06-21 20:45] VITALS: BP 206/90
--- NOTE | 2021-06-21 20:48 | NUR ---
TO LOBBY A/W BED AMBULATORY
--- NOTE | 2021-06-21 21:05 | NUR ---
RECEIVED PT IN BED 6 WITH C/O HIGH BLOOD PRESSURE, HIGH BLOOD SUGAR AND POSSIBLE CELLULITIS. MULTIPLE RED ROUND SPOTS (APPEAR LIKE BUG BITES) TO BLE. PT STATES HAVE BEEN THERE X 1 WEEK
--- NOTE | 2021-06-21 21:05 | NUR ---
AMBULATED TO ER BED 6
--- NOTE | 2021-06-21 21:10 | NUR ---
DR. COLE AT BEDSIDE
[2021-06-21] MEDS ORDERED: NACL 0.9% 1,000 ML IV ONE (21:20)
[2021-06-21 21:38] LABS: BASOPHILS % (AUTO) 0.4 % (0.0-2.0); EOSINOPHILS # (AUTO) 0.2 K/uL (0-0.4); EOSINOPHILS % (AUTO) 2.2 % (0.0-4.0); HEMATOCRIT 37.6 % (36-48); HEMOGLOBIN 12.4 g/dL (12.0-16.0); LYMPHOCYTES # (AUTO) 1.7 K/uL (2.5-16.5); LYMPHOCYTES % (AUTO) 21.3 % (20.5-51.1); MEAN CORPUSCULAR HEMOGLOBIN 27 pg (27-31); MEAN CORPUSCULAR HGB CONC 33 g/dL (33-37); MEAN CORPUSCULAR VOLUME 82.4 fL (80-94); MONOCYTES # (AUTO) 0.4 K/uL (0.8-1.0); NEUTROPHILS # (AUTO) 5.5 K/uL (1.8-7.7); NEUTROPHILS % (AUTO) 71.1 % (42.2-75.2); PLATELET COUNT (AUTO) 160 K/uL (140-450); RED BLOOD CELL COUNT(AUTO) 4.56 MIL/uL (4.20-5.40); RED CELL DISTRIBUTION WIDTH 15.1 % (11.6-13.7); WHITE BLOOD COUNT (AUTO) 7.8 K/uL (4.8-10.8)
[2021-06-21 21:49] LABS: ANION GAP 13.6 (8-16); CARBON DIOXIDE 27.2 mmol/L (21-32); CREATININE 0.9 mg/dL (0.6-1.3); POTASSIUM 3.8 mmol/L (3.5-5.1)
[2021-06-21 22:02] LABS: PROTHROMBIN TIME 8.9 secs (10.8-13.4)
[2021-06-21] MEDS ORDERED: CEPH-588 PO (23:10)
[2021-06-21 23:36] VITALS: BP 148/86
== END 2021-06-21 23:36 | disposition home or self-care (01) ==
LOC: MED 20:28
DX: R21 Rash and other nonspecific skin eruption (principal); E11.65 Type 2 diabetes mellitus with hyperglycemia; I10 Essential (primary) hypertension; E03.9 Hypothyroidism, unspecified; Z88.8 Allergy status to other drugs, medicaments and biological substances; Z87.442 Personal history of urinary calculi; Z79.899 Other long term (current) drug therapy
CPT/HCPCS: 36415; 80048; 85025; 85610; 85730; 96360; 99283; J7030

== ENCOUNTER 2021-06-25 01:55 | Observation (INO) | payer OTHER, SELFPAY ==
[~2021-06-25] VITALS: Ht 147.3 cm; Wt 63.0 kg
[~2021-06-25 01:55] MED LIST changes: +CEPH-588 PO
[2021-06-25 02:06] VITALS: BP 159/90
[2021-06-25] MEDS ORDERED: ASPIRIN 325 MG TAB PO ONE (02:30)
[2021-06-25] MEDS ORDERED: NITROGLYCERIN 0.4 MG TAB SL ONE (02:30)
[2021-06-25 02:48] LABS: BASOPHILS % (AUTO) 0.3 % (0.0-2.0); EOSINOPHILS # (AUTO) 0.1 K/uL (0-0.4); HEMATOCRIT 38.5 % (36-48); HEMOGLOBIN 12.6 g/dL (12.0-16.0); LYMPHOCYTES # (AUTO) 1.7 K/uL (2.5-16.5); MEAN CORPUSCULAR HEMOGLOBIN 27 pg (27-31); MEAN CORPUSCULAR HGB CONC 33 g/dL (33-37); MEAN CORPUSCULAR VOLUME 84.2 fL (80-94); MONOCYTES # (AUTO) 0.6 K/uL (0.8-1.0); MONOCYTES % (AUTO) 6.3 % (1.7-9.3); NEUTROPHILS # (AUTO) 6.6 K/uL (1.8-7.7); NEUTROPHILS % (AUTO) 73.4 % (42.2-75.2); PLATELET COUNT (AUTO) 155 K/uL (140-450); RED BLOOD CELL COUNT(AUTO) 4.58 MIL/uL (4.20-5.40); RED CELL DISTRIBUTION WIDTH 15.3 % (11.6-13.7); WHITE BLOOD COUNT (AUTO) 8.9 K/uL (4.8-10.8)
[2021-06-25 03:02] LABS: ALBUMIN 3.4 g/dL (3.4-5.0); ANION GAP 14.4 (8-16); CARBON DIOXIDE 24.7 mmol/L (21-32); CREATININE 0.8 mg/dL (0.6-1.3); POTASSIUM 4.1 mmol/L (3.5-5.1); TOTAL BILIRUBIN 0.7 mg/dL (0.0-1.0)
[2021-06-25] MEDS ORDERED: MORPHINE SULFATE 2 MG/ML SYR IVP ONE (05:00)
[2021-06-25] MEDS ORDERED: ONDANSETRON 4 MG/2 ML VIAL IVP ONE (05:00)
[2021-06-25] MEDS ORDERED: MORPHINE SULFATE 2 MG/ML SYR IVP PRN ×2 (08:10→08:15)
[2021-06-25] MEDS ORDERED: ZOLPIDEM 5 MG TAB PO PRN (08:15)
[2021-06-25] MEDS ORDERED: ONDANSETRON 4 MG/2 ML VIAL IVP PRN (08:15)
[2021-06-25] MEDS ORDERED: NACL 0.9% 1,000 ML IV SCH (08:15)
[2021-06-25] MEDS ORDERED: ACETAMINOPHEN 325 MG TAB PO PRN (08:15)
[2021-06-25] MEDS ORDERED: DOCUSATE SODIUM 100 MG GELCAP PO PRN (08:15)
[2021-06-25] MEDS ORDERED: HYDROcodone/APAP 5/325 MG 1 TAB TAB PO PRN (08:15)
[2021-06-25] MEDS ORDERED: LORazepam 2 MG/ML VIAL IM/IVP PRN (08:15)
[2021-06-25] MEDS: MORPHINE SULFATE 2 MG/ML SYR IVP PRN ×2 (08:21→08:27)
[2021-06-25] MEDS ORDERED: hydrALAZINE 10 MG TAB PO PRN (08:25)
[2021-06-25] MEDS ORDERED: ECOTRIN 81 MG TABEC PO SCH (09:00)
[2021-06-25] MEDS ORDERED: ATORVASTATIN 20 MG TAB PO SCH (09:00)
[2021-06-25] MEDS ORDERED: lisinopriL 5 MG TAB PO SCH (09:00)
[2021-06-25 09:17] LABS: BASOPHILS % (AUTO) 0.5 % (0.0-2.0); EOSINOPHILS # (AUTO) 0.1 K/uL (0-0.4); EOSINOPHILS % (AUTO) 1.4 % (0.0-4.0); HEMATOCRIT 37.2 % (36-48); HEMOGLOBIN 12.3 g/dL (12.0-16.0); LYMPHOCYTES # (AUTO) 1.8 K/uL (2.5-16.5); LYMPHOCYTES % (AUTO) 23.1 % (20.5-51.1); MEAN CORPUSCULAR HEMOGLOBIN 28 pg (27-31); MEAN CORPUSCULAR HGB CONC 33 g/dL (33-37); MEAN CORPUSCULAR VOLUME 83.1 fL (80-94); MONOCYTES # (AUTO) 0.5 K/uL (0.8-1.0); MONOCYTES % (AUTO) 6.7 % (1.7-9.3); NEUTROPHILS # (AUTO) 5.4 K/uL (1.8-7.7); NEUTROPHILS % (AUTO) 68.3 % (42.2-75.2); PLATELET COUNT (AUTO) 164 K/uL (140-450); RED BLOOD CELL COUNT(AUTO) 4.48 MIL/uL (4.20-5.40); RED CELL DISTRIBUTION WIDTH 15.3 % (11.6-13.7); WHITE BLOOD COUNT (AUTO) 7.9 K/uL (4.8-10.8)
[2021-06-25 09:29] LABS: PROTHROMBIN TIME 9.1 secs (10.8-13.4)
[2021-06-25 09:30] LABS: ALBUMIN 3.2 g/dL (3.4-5.0); ANION GAP 8.9 (8-16); CREATININE 0.5 mg/dL (0.6-1.3); POTASSIUM 3.9 mmol/L (3.5-5.1); TOTAL BILIRUBIN 0.9 mg/dL (0.0-1.0)
[2021-06-25 09:39] LABS: CHOL/HDL RATIO 2.6 (1-4.5); FREE T4 (FREE THYROXINE) 0.8 ng/dL (0.76-1.46); PHOSPHORUS 3.6 mg/dL (2.5-4.9); THYROID STIMULATING HORMONE 8.41 uIU/mL (0.34-3.74)
[2021-06-25 11:27] LABS: BARBITURATE, URINE NEGATIVE ng/ml (NEG <=200); BENZODIAZEPINE, URINE NEGATIVE ng/mL (NEG <=200); CANNABINOID, URINE NEGATIVE ng/mL (NEG <=50); COCAINE, URINE NEGATIVE ng/mL (NEG <=300); OPIATE, URINE NEGATIVE ng/mL (NEG <=2000); PHENCYCLIDINE SCREEN,URINE NEGATIVE ng/mL (NEG <=25)
[2021-06-25 11:45] LABS: APPEARANCE,URINE CLEAR (CLEAR); BILIRUBIN,URINE NEGATIVE (NEGATIVE); BLOOD, URINE NEGATIVE (NEGATIVE); COLOR,URINE YELLOW (YELLOW); LEUKOCYTE ESTERASE ,URINE NEGATIVE (NEGATIVE); NITRITE, URINE NEGATIVE (NEGATIVE); UGLUCOSE 3+ (NEGATIVE)
[2021-06-25 11:56] LABS: RBC,URINE 0-5 /HPF (0-5)
[2021-06-25] MEDS ORDERED: ASPI-1856 PO (13:59)
[2021-06-25 15:43] VITALS: BP 155/62
[2021-06-25 15:50] VITALS: BP 155/62
== END 2021-06-25 15:50 | disposition home or self-care (01) ==
LOC: MED 01:55 → MTU 06:26
PROVIDERS: ADMIT Family Medicine; ATTEND Family Medicine
DX: R07.89 Other chest pain (principal); I10 Essential (primary) hypertension; E11.9 Type 2 diabetes mellitus without complications; E78.5 Hyperlipidemia, unspecified; Z79.4 Long term (current) use of insulin; Z79.82 Long term (current) use of aspirin; Z79.899 Other long term (current) drug therapy
CPT/HCPCS: 36415; 71045; 80053; 80061; 80305; 81001; 82150; 83036; 83690; 83735; 83880; 84100; 84439; 84443; 84484; 85025; 85610; 85730; 87086; 93005; 96361; 96374; 96375; 96376; 99285; G0378; J2270; J2405

== ENCOUNTER 2021-07-04 14:58 | Inpatient (IN) | payer OTHER, SELFPAY ==
[~2021-07-04] VITALS: Ht 147.3 cm; Wt 62.6 kg
[~2021-07-04 14:58] MED LIST changes: -ASPI-1822 PO; +ASPI-1856 PO; -CEPH-588 PO; -HYDR-5191 PO; -NITR0.4T95 SL; -PANT40EC56 PO
[2021-07-04 15:12] VITALS: BP 195/83
--- NOTE | 2021-07-04 15:25 | NUR ---
Patient ambulated to bed 11 with steady/even gait. Urine sample collected.
--- NOTE | 2021-07-04 15:35 | NUR ---
,65 y/o F BIB self from home with c/c high blood sugar reading. Patient A&Ox4, ambulatory, states blood sugar reading 520 at home prior to arrival. Patient also notes left-sided chest pain that began "a few hours ago" while at home; statse 5/10, pressure/constant, radiating to L arm. Patient reports symptoms of generalized weakness, dizziness, urinary frequency, chest pain. Triage AccuChek 446. Denies abdominal pain, nausea, vomiting, diarrhea, fever, chills. Pt placed into a gown. teletypesetter monitor in place; Bed locked in lowest position, side rails x 1, call light in reach. PMH: DM, HTN, Hyperthyroidism Meds: Tresiba, unable to recall other meds Allergies: Sulfa, allantoin SX: Cholecystectomy 1 month ago
--- NOTE | 2021-07-04 16:35 | NUR ---
Patient resting comfortably in semi-fowlers. plant operator helper in place. VSS; respirations even/unlabored. Bed locked in lowest position, side rails x 1, call light in reach.
[2021-07-04] MEDS ORDERED: NACL 0.9% 1,000 ML IV ONE (17:00)
--- NOTE | 2021-07-04 17:25 | NUR ---
Lab at bedside
--- NOTE | 2021-07-04 17:30 | NUR ---
Unable to attempt successful IV at this time. Dr. Howard made aware.
[2021-07-04 17:40] LABS: BASOPHILS % (AUTO) 0.5 % (0.0-2.0); EOSINOPHILS # (AUTO) 0.1 K/uL (0-0.4); EOSINOPHILS % (AUTO) 1.2 % (0.0-4.0); HEMATOCRIT 36.3 % (36-48); HEMOGLOBIN 12.1 g/dL (12.0-16.0); LYMPHOCYTES # (AUTO) 1.8 K/uL (2.5-16.5); LYMPHOCYTES % (AUTO) 21.6 % (20.5-51.1); MEAN CORPUSCULAR HEMOGLOBIN 27 pg (27-31); MEAN CORPUSCULAR HGB CONC 33 g/dL (33-37); MONOCYTES # (AUTO) 0.5 K/uL (0.8-1.0); MONOCYTES % (AUTO) 5.4 % (1.7-9.3); NEUTROPHILS % (AUTO) 71.3 % (42.2-75.2); PLATELET COUNT (AUTO) 174 K/uL (140-450); RED BLOOD CELL COUNT(AUTO) 4.43 MIL/uL (4.20-5.40); RED CELL DISTRIBUTION WIDTH 15.3 % (11.6-13.7); WHITE BLOOD COUNT (AUTO) 8.4 K/uL (4.8-10.8)
[2021-07-04] MEDS ORDERED: ASPIRIN 81 MG TAB.CHEW PO ONE (17:40)
[2021-07-04] MEDS ORDERED: NITROGLYCERIN 0.4 MG TAB SL ONE (17:40)
--- NOTE | 2021-07-04 17:45 | NUR ---
Patient with both eyes open in position of comfort. media monitor in place. VSS; respirations even/unlabored. Bed locked in lowest position, side rails x 1, call light in reach.
--- NOTE | 2021-07-04 17:50 | NUR ---
Dr. Howard is at bedside for ultrasounded-guided IV.
[2021-07-04 17:56] LABS: PROTHROMBIN TIME 9.3 secs (10.8-13.4)
[2021-07-04 18:00] LABS: ALBUMIN 3.3 g/dL (3.4-5.0); ANION GAP 10.8 (8-16); CREATININE 0.7 mg/dL (0.6-1.3); POTASSIUM 3.8 mmol/L (3.5-5.1); TOTAL BILIRUBIN 0.7 mg/dL (0.0-1.0)
--- NOTE | 2021-07-04 18:38 | NUR ---
Kyrie haines swab collected, walked to lab and handed to CPT. Evelin
--- NOTE | 2021-07-04 18:55 | NUR ---
Patient with both eyes open in position of comfort. States she does not feel good. cardiac monitor technician in place. VSS; respirations even/unlabored. Bed locked in lowest position, side rails x 1, call light in reach.
--- NOTE | 2021-07-04 19:16 | NUR ---
Report and transfer of care endorse to NOEMI Zhang.
[2021-07-04] MEDS ORDERED: MORPHINE SULFATE 4 MG/ML SYR IVP PRN (19:25)
[2021-07-04] MEDS ORDERED: MORPHINE SULFATE 2 MG/ML SYR IVP PRN (19:25)
--- NOTE | 2021-07-04 19:30 | NUR ---
ASSUMED OF PT. IN ROOM 11 AWAKE ALERTX3 DENIES PAIN OB CARDIAC MONITORING NSR. PT REQUESTING TUNA SANDWICH. SNACK PROVIDED.
--- NOTE | 2021-07-04 20:09 | NUR ---
provided patient food. placed patient in high fowlers. safety measures are in place, will continue to monitor patient
--- NOTE | 2021-07-04 22:01 | NUR ---
VITALS RECHECKED STABLE ASLEEP WITH RESP EVEN UNLABORED ON POSTAGE MACHINE OPERATOR NSR. DENIES CP. AWAITS TELE BED
--- NOTE | 2021-07-04 22:56 | NUR ---
Patient appears to be resting comfortably in bed. Vital Signs within normal limits. Respirations even and unlabored.
--- NOTE | 2021-07-04 23:11 | NUR ---
Patient appears to be resting comfortably in bed. Vital Signs within normal limits. Respirations even and unlabored.on telemetry monitoring.
--- NOTE | 2021-07-05 01:19 | NUR ---
Patient appears to be resting comfortably in bed. Vital Signs within normal limits. Respirations even and unlabored. no tele beds available
--- NOTE | 2021-07-05 03:01 | NUR ---
Patient appears to be resting comfortably in bed. Vital Signs within normal limits. Respirations even and unlabored. safety measures in place will continue to monitor
--- NOTE | 2021-07-05 05:24 | NUR ---
Patient appears to be resting comfortably in bed. Vital Signs within normal limits. Respirations even and unlabored. Safety measures in place will continue to monitor
--- NOTE | 2021-07-05 06:59 | NUR ---
Called patient's for medication reconciliation
--- NOTE | 2021-07-05 07:20 | NUR ---
Received report from Leatha FRANKLIN, assumed care at this time.
--- NOTE | 2021-07-05 07:59 | NUR ---
RECEIVED REPORT FROM COUNSELING SERVICES MANAGER VIA PHONE. PATIENT STABLE AND READY TO TRANSFER TO FLOOR. WILL WAIT FOR PATIENT'S TRANSFER.
--- NOTE | 2021-07-05 07:59 | NUR ---
Patient will be admitted to care of Dr. Curry. Admited to TELE. Will go to room 122B. Belongings list completed. Report to
--- NOTE | 2021-07-05 08:15 | NUR ---
Patient arrived via wheelchair. Ambulated to bed on steady gait. IV to lt upper arm 20G, patent, intact, SL. Oriented patient to room, call light, phone, bathroom. Patient on Room Air, no s/s of distress or sob noted. DX Chest pain and hyperglycemia. MRSA swabbed done. Verbalized plan of care, patient verbalized understanding. Bed in lowest position with brakes on. Call light within reach, will continue to monitor patient.
[2021-07-05 08:30] VITALS: BP 141/71
[2021-07-05] MEDS ORDERED: INSULIN LISPRO SLIDING SCALE 100 UNITS/ML VIAL SUBQ PRN (10:45)
[2021-07-05] MEDS ORDERED: DEXTROSE 50% 50 ML SYR IVP PRN ×2 (10:45→12:05)
[2021-07-05 12:00] VITALS: BP 121/77
[2021-07-05] MEDS ORDERED: MAG SULF 2000 MG/WATER PREMIX 50 ML IV PRN (12:05)
[2021-07-05] MEDS ORDERED: POTASSIUM CHLORIDE 10 MEQ TABER PO PRN (12:05)
[2021-07-05] MEDS ORDERED: NITROGLYCERIN 0.4 MG TAB SL PRN (12:05)
[2021-07-05] MEDS: BLOOD GLUCOSE MONITORING 1 DEV DEV FS SCH ×3 (12:26→20:53)
--- NOTE | 2021-07-05 13:35 | NUR ---
DR MONTEMAYOR IN TO SEE PATIENT.
[2021-07-05 16:00] VITALS: BP 125/69
[2021-07-05] MEDS ORDERED: BLOOD GLUCOSE MONITORING 1 DEV DEV FS SCH ×2 (16:30)
[2021-07-05] MEDS: INSULIN LISPRO SLIDING SCALE 100 UNITS/ML VIAL SUBQ PRN ×2 (17:52→20:57)
--- NOTE | 2021-07-05 18:57 | NUR ---
PT RESTING IN BED EATING DINNER. NO COMPLAINTS AT THIS TIME. WILL CONTINUE TO MONITOR PATIENT AND ENDORSE TO FORESTRY AID NURSE.
--- NOTE | 2021-07-05 19:13 | NUR ---
LATE ENTRY- 0.69% NS IVF DISCONTINUED AT 1855
[2021-07-05] MEDS: METOPROLOL 25 MG TAB PO SCH (20:52)
[2021-07-05 21:00] VITALS: BP 143/48
[2021-07-05] MEDS ORDERED: ATORVASTATIN 20 MG TAB PO SCH (21:00)
[2021-07-06] VITALS: BP 123/72
[2021-07-06 05:00] VITALS: BP 144/71
[2021-07-06 05:10] LABS: BASOPHILS % (AUTO) 0.5 % (0.0-2.0); EOSINOPHILS # (AUTO) 0.2 K/uL (0-0.4); EOSINOPHILS % (AUTO) 2.6 % (0.0-4.0); HEMATOCRIT 34.6 % (36-48); HEMOGLOBIN 11.5 g/dL (12.0-16.0); LYMPHOCYTES # (AUTO) 1.9 K/uL (2.5-16.5); MEAN CORPUSCULAR HEMOGLOBIN 27 pg (27-31); MEAN CORPUSCULAR HGB CONC 33 g/dL (33-37); MEAN CORPUSCULAR VOLUME 82.5 fL (80-94); MONOCYTES # (AUTO) 0.5 K/uL (0.8-1.0); MONOCYTES % (AUTO) 6.4 % (1.7-9.3); NEUTROPHILS # (AUTO) 4.5 K/uL (1.8-7.7); NEUTROPHILS % (AUTO) 63.5 % (42.2-75.2); PLATELET COUNT (AUTO) 144 K/uL (140-450); RED BLOOD CELL COUNT(AUTO) 4.19 MIL/uL (4.20-5.40); RED CELL DISTRIBUTION WIDTH 15.2 % (11.6-13.7); WHITE BLOOD COUNT (AUTO) 7.1 K/uL (4.8-10.8)
[2021-07-06 05:53] LABS: ANION GAP 7.4 (8-16); CARBON DIOXIDE 27.5 mmol/L (21-32); CREATININE 0.6 mg/dL (0.6-1.3); POTASSIUM 3.9 mmol/L (3.5-5.1)
[2021-07-06 05:55] LABS: MAGNESIUM 1.8 mg/dL (1.8-2.4); PHOSPHORUS 3.8 mg/dL (2.5-4.9)
[2021-07-06] MEDS ORDERED: LEVOTHYROXINE 0.05 MG TAB PO SCH (06:30)
[2021-07-06] MEDS: BLOOD GLUCOSE MONITORING 1 DEV DEV FS SCH ×3 (08:07→17:10)
[2021-07-06] MEDS: INSULIN LISPRO SLIDING SCALE 100 UNITS/ML VIAL SUBQ PRN ×3 (08:07→17:11)
--- NOTE | 2021-07-06 08:12 | NUR ---
RECEIVED BEDSIDE REPORT FROM FRONT END TECHNICIAN NURSE. PATIENT FOUND SLEEPING IN BED, ANSWERS TO NAME, ALERT, AND ABLE TO MAKE NEEDS KNOWN. BREATHING EVEN AND UNLABORED, NO SIGNS OF ACUTE DISTRESS NOTED ON RA. LAC 20G, SL. AMBULATORY. BED IN LOW POSITION, SAFETY MEASURES IN PLACE.
[2021-07-06] MEDS ORDERED: INSULIN DEGLUDEC SQ SCH (09:00)
[2021-07-06] MEDS ORDERED: ATORVASTATIN 20 MG TAB PO SCH (09:00)
[2021-07-06] MEDS ORDERED: lisinopriL 5 MG TAB PO SCH (09:00)
[2021-07-06] MEDS ORDERED: ECOTRIN 81 MG TABEC PO SCH (09:00)
[2021-07-06] MEDS: METOPROLOL 25 MG TAB PO SCH (09:03)
[2021-07-06] MEDS ORDERED: INSU100I3 SQ (12:21)
[2021-07-06 13:27] VITALS: BP 162/70
[2021-07-06] MEDS ORDERED: hydrALAZINE 20 MG/ML VIAL IVP STA (13:40)
[2021-07-06 14:09] VITALS: BP 152/65
[2021-07-06] MEDS ORDERED: LORazepam 2 MG/ML VIAL IVP SCH (15:00)
[2021-07-06] MEDS ORDERED: SERT50TA PO (18:21)
--- NOTE | 2021-07-06 19:30 | NUR ---
RECEIVED PATIENT FROM AM NURSE FOR CONTINUITY OF CARE. PATIENT A/A/O X4. SITTING UP IN BED. RESPIRATORY EVEN AND UNLABORED, ON ROOM AIR. NO SIGN OF DISTRESS NOTED. SKIN WARM, DRY, NON DIAPHORETIC. IV ON LEFT AC 20G, INTACT AND PATENT, SALINE LOCK. PATIENT DENIES ANY PAIN OR DISCOMFORT. ABLE TO MAKE NEED KNOWN. FAMILY AT BEDSIDE. PLAN OF CARE DISCUSSED, PATIENT VERBALIZED UNDERSTANDING. CALL LIGHT WITHIN REACH. WILL CONTINUE TO MONITOR.
[2021-07-06] MEDS ORDERED: METO25TA PO (19:39)
[2021-07-06 19:47] VITALS: BP 145/71
[2021-07-06 19:49] VITALS: BP 145/71
--- NOTE | 2021-07-06 20:00 | NUR ---
PATIENT DISCHARGED TO FAMILY. ARM BAND ARE REMOVED, IV DISCHARGE WITH CONTROL BLEEDING. EDUCATION GIVEN REGARDING THE MEDICATION AND FOLLOW UP ANOINTMENT TO PATIENT AND FAMILY, THEY VERBALIZED UNDERSTANDING. PATIENT IS STABLE. DENIES ANY PAIN OR DISCOMFORT. PATIENT AMBULATE WITH FAMILY WHEN DISCHARGE.
== END 2021-07-06 20:00 | disposition home or self-care (01) | DRG 638 ==
LOC: MED 14:58 → MTU 19:33
DX: E11.65 Type 2 diabetes mellitus with hyperglycemia (principal); E44.1 Mild protein-calorie malnutrition; F41.1 Generalized anxiety disorder; I10 Essential (primary) hypertension; E03.9 Hypothyroidism, unspecified; Z20.822 Contact with and (suspected) exposure to COVID-19; E66.9 Obesity, unspecified; K21.9 Gastro-esophageal reflux disease without esophagitis; F32.9 Major depressive disorder, single episode, unspecified; E78.5 Hyperlipidemia, unspecified; D64.9 Anemia, unspecified; Z87.442 Personal history of urinary calculi; Z79.82 Long term (current) use of aspirin; Z79.899 Other long term (current) drug therapy; Z90.49 Acquired absence of other specified parts of digestive tract; Z88.2 Allergy status to sulfonamides; Z88.8 Allergy status to other drugs, medicaments and biological substances; Z98.51 Tubal ligation status; Z83.3 Family history of diabetes mellitus; Z82.3 Family history of stroke; Z82.49 Family history of ischemic heart disease and other diseases of the circulatory system; Z80.6 Family history of leukemia; Z68.28 Body mass index [BMI] 28.0-28.9, adult
CPT/HCPCS: 36415; 71045; 73120; 80048; 80053; 82948; 83735; 83880; 84100; 84484; 85025; 85610; 85730; 93005; 96360; 99285; J0360; J1644; J2060

== ENCOUNTER 2021-12-14 20:19 | Emergency (ER) | payer OTHER, SELFPAY ==
[~2021-12-14] VITALS: Ht 147.3 cm; Wt 64.0 kg
[~2021-12-14 20:19] MED LIST changes: -LISI-648 PO; +LISI5TAB24 PO; +METO25TA PO; +SERT50TA PO
[2021-12-14 20:26] VITALS: BP 181/105
--- NOTE | 2021-12-14 20:33 | NUR ---
patient to the bathroom for urine collection and then to chair a
[2021-12-14] MEDS ORDERED: LORazepam 2 MG/ML VIAL IM ONE (21:25)
[2021-12-14 22:13] VITALS: BP 143/76
== END 2021-12-14 22:13 | disposition home or self-care (01) ==
LOC: MED 20:19
DX: F41.9 Anxiety disorder, unspecified (principal); E11.9 Type 2 diabetes mellitus without complications; I10 Essential (primary) hypertension; Z87.442 Personal history of urinary calculi; Z88.2 Allergy status to sulfonamides
CPT/HCPCS: 82948; 96372; 99283; J2060

== ENCOUNTER 2022-01-28 20:36 | Emergency (ER) | payer OTHER, SELFPAY ==
[~2022-01-28] VITALS: Ht 147.3 cm; Wt 63.5 kg
[2022-01-28 20:37] VITALS: BP 201/74
--- NOTE | 2022-01-28 20:37 | NUR ---
TO BED AMBULATORY
--- NOTE | 2022-01-28 20:40 | NUR ---
RECEIVED IN BED 12 WITYH C/O CHEST PAIN, ANXIETY 2 DAYS AGO. PT IS VERY ANXIOUS, BP ELEVATED.
[2022-01-28] MEDS ORDERED: LORazepam 1 MG TAB PO ONE (21:05)
--- NOTE | 2022-01-28 21:25 | NUR ---
Patient discharged with v/s stable. Written and verbal after care instructions given and explained. Patient alert, oriented and verbalized understanding of instructions. Ambulatory with steady gait. All questions addressed prior to discharge. ID band removed. Patient advised to follow up with PMD. Rx of ATARAX PREDNISONE given. Patient educated on indication of medication including possible reaction and side effects. Opportunity to ask questions provided and answered.
[2022-01-28] MEDS ORDERED: ATA25 PO (21:36)
[2022-01-28] MEDS ORDERED: PRED20TA5 PO (21:36)
== END 2022-01-28 21:25 | disposition home or self-care (01) ==
LOC: MED 20:36
DX: R07.89 Other chest pain (principal); F41.9 Anxiety disorder, unspecified; R05.9 Cough, unspecified; E11.9 Type 2 diabetes mellitus without complications; I10 Essential (primary) hypertension; E07.9 Disorder of thyroid, unspecified; Z88.8 Allergy status to other drugs, medicaments and biological substances; Z79.82 Long term (current) use of aspirin; Z79.899 Other long term (current) drug therapy; Z90.49 Acquired absence of other specified parts of digestive tract; Z87.442 Personal history of urinary calculi
CPT/HCPCS: 93005; 99283

== ENCOUNTER 2023-05-05 18:33 | Emergency (ER) | payer OTHER ==
[~2023-05-05] VITALS: Ht 147.3 cm; Wt 63.5 kg
[~2023-05-05 18:33] MED LIST changes: +ATA25 PO; +PRED20TA5 PO
[2023-05-05 18:44] VITALS: BP 113/49
--- NOTE | 2023-05-05 19:35 | NUR ---
SEEN AND EXAMINED BY PA GODINEZ
[2023-05-05 19:55] VITALS: BP 118/79
--- NOTE | 2023-05-05 19:55 | NUR ---
Patient discharged with v/s stable. Written and verbal after care instructions given and explained, BY PA GODINEZ. Patient verbalized understanding. Ambulatory with steady gait. All questions addressed prior to discharge. Advised to follow up with PMD.
== END 2023-05-05 19:55 | disposition home or self-care (01) ==
LOC: MED 18:33
DX: I83.11 Varicose veins of right lower extremity with inflammation (principal); I83.12 Varicose veins of left lower extremity with inflammation; E11.9 Type 2 diabetes mellitus without complications; I10 Essential (primary) hypertension; E07.9 Disorder of thyroid, unspecified; Z87.442 Personal history of urinary calculi; Z88.8 Allergy status to other drugs, medicaments and biological substances; Z79.899 Other long term (current) drug therapy
CPT/HCPCS: 99282; 99283

== ENCOUNTER 2023-09-14 20:28 | Emergency (ER) | payer OTHER ==
[~2023-09-14] VITALS: Ht 147.3 cm; Wt 63.5 kg
[~2023-09-14 20:28] MED LIST changes: +BACI-105 TP; +DOXY-690 PO
[2023-09-14 20:50] VITALS: BP 169/78; PULSE 81; RESP 17; TEMP 97.8; O2SAT 95
[2023-09-14 21:43] LABS: BASOPHILS % (AUTO) 0.4 % (0.0-2.0); EOSINOPHILS # (AUTO) 0.1 K/uL (0-0.4); EOSINOPHILS % (AUTO) 1.3 % (0.0-4.0); HEMATOCRIT 41.5 % (36-48); HEMOGLOBIN 13.8 g/dL (12.0-16.0); LYMPHOCYTES # (AUTO) 1.7 K/uL (2.5-16.5); LYMPHOCYTES % (AUTO) 23.2 % (20.5-51.1); MEAN CORPUSCULAR HEMOGLOBIN 28 pg (27-31); MEAN CORPUSCULAR HGB CONC 33 g/dL (33-37); MEAN CORPUSCULAR VOLUME 84.7 fL (80-94); MONOCYTES # (AUTO) 0.4 K/uL (0.8-1.0); MONOCYTES % (AUTO) 5.8 % (1.7-9.3); NEUTROPHILS # (AUTO) 5.2 K/uL (1.8-7.7); NEUTROPHILS % (AUTO) 69.3 % (42.2-75.2); PLATELET COUNT (AUTO) 196 K/uL (140-450); RED CELL DISTRIBUTION WIDTH 14.8 % (11.6-13.7); WHITE BLOOD COUNT (AUTO) 7.4 K/uL (4.8-10.8)
[2023-09-14 21:57] LABS: ACETONE, SERUM Negative (NEGATIVE); ALANINE AMINOTRANSFERASE 22 U/L (12-78); ALBUMIN 3.7 g/dL (3.4-5.0); ALKALINE PHOSPHATASE 127 U/L (50-136); ANION GAP 11.4 (8-16); ASPARTATE AMINOTRANSFERASE 14 U/L (15-37); CALCIUM 9.1 mg/dL (8.5-10.1); CARBON DIOXIDE 28.7 mmol/L (21-32); CHLORIDE 101 mmol/L (98-107); CREATININE 0.9 mg/dL (0.6-1.3); GFR ARICAN-AMERICAN 80 mL/min (>90); GFR NON ARICAN-AMERICAN 66 mL/min (>90); LIPASE 40 U/L (16-77); POTASSIUM 4.1 mmol/L (3.5-5.1); SODIUM SERUM 137 mmol/L (136-145); TOTAL PROTEIN, SERUM 7.4 g/dL (6.4-8.2); UREA NITROGEN, BLOOD 13 mg/dL (7-18)
[2023-09-14 21:58] LABS: GLUCOSE 423 mg/dL (74-106)
[2023-09-14 22:03] LABS: APPEARANCE,URINE CLEAR (CLEAR); BILIRUBIN,URINE NEGATIVE (NEGATIVE); BLOOD, URINE NEGATIVE (NEGATIVE); COLOR,URINE YELLOW (YELLOW); LEUKOCYTE ESTERASE ,URINE NEGATIVE (NEGATIVE); NITRITE, URINE NEGATIVE (NEGATIVE); PROTEIN,URINE NEGATIVE (NEGATIVE); UGLUCOSE 3+ (NEGATIVE); UROBILINOGEN,URINE 0.2 EU/dL (0.2 - 1)
[2023-09-14] MEDS ORDERED: INSULIN REGULAR, HUMAN 100 UNIT/ML VIAL SUBQ ONE (22:25)
[2023-09-15 00:40] VITALS: BP 145/82; PULSE 81; RESP 17; TEMP 97.8; O2SAT 95
== END 2023-09-15 00:40 | disposition home or self-care (01) ==
LOC: MED 20:28
DX: E11.65 Type 2 diabetes mellitus with hyperglycemia (principal); I10 Essential (primary) hypertension; E05.90 Thyrotoxicosis, unspecified without thyrotoxic crisis or storm; Z87.448 Personal history of other diseases of urinary system; Z79.899 Other long term (current) drug therapy; Z79.2 Long term (current) use of antibiotics; Z79.82 Long term (current) use of aspirin; Z88.8 Allergy status to other drugs, medicaments and biological substances
CPT/HCPCS: 36415; 80053; 81003; 82009; 82948; 83690; 85025; 99283; J1815

== ENCOUNTER 2024-08-28 12:25 | Emergency (ER) | payer OTHER ==
[~2024-08-28] VITALS: Ht 147.3 cm; Wt 59.9 kg
[2024-08-28 12:28] VITALS: BP 138/63; PULSE 91; RESP 15; TEMP 98.8; O2SAT 96
[2024-08-28 13:18] LABS: PLATELET COUNT (AUTO) 180 K/uL (140-450); WHITE BLOOD COUNT (AUTO) 7.1 K/uL (4.8-10.8)
[2024-08-28 13:26] LABS: BASOPHILS % (AUTO) 0.4 % (0.0-2.0); EOSINOPHILS # (AUTO) 0.1 K/uL (0-0.4); HEMATOCRIT 41.5 % (36-48); LYMPHOCYTES # (AUTO) 1.7 K/uL (2.5-16.5); LYMPHOCYTES % (AUTO) 24.5 % (20.5-51.1); MEAN CORPUSCULAR HEMOGLOBIN 29 pg (27-31); MEAN CORPUSCULAR HGB CONC 34 g/dL (33-37); MEAN CORPUSCULAR VOLUME 84.8 fL (80-94); MONOCYTES # (AUTO) 0.5 K/uL (0.8-1.0); MONOCYTES % (AUTO) 6.4 % (1.7-9.3); NEUTROPHILS # (AUTO) 4.8 K/uL (1.8-7.7); NEUTROPHILS % (AUTO) 67.7 % (42.2-75.2); RED CELL DISTRIBUTION WIDTH 14.4 % (11.6-13.7)
[2024-08-28 13:32] LABS: APPEARANCE,URINE CLEAR (CLEAR); BILIRUBIN,URINE NEGATIVE (NEGATIVE); BLOOD, URINE TRACE-I (NEGATIVE); COLOR,URINE YELLOW (YELLOW); LEUKOCYTE ESTERASE ,URINE NEGATIVE (NEGATIVE); NITRITE, URINE NEGATIVE (NEGATIVE); PROTEIN,URINE NEGATIVE (NEGATIVE); UGLUCOSE 3+ (NEGATIVE); UROBILINOGEN,URINE 0.2 EU/dL (0.2 - 1)
[2024-08-28 13:44] LABS: CALCIUM 9.4 mg/dL (8.5-10.1); CHLORIDE 95 mmol/L (98-107); CREATININE 1.1 mg/dL (0.6-1.3); SODIUM SERUM 132 mmol/L (136-145); UREA NITROGEN, BLOOD 20 mg/dL (7-18)
[2024-08-28 13:48] LABS: GLUCOSE 540 mg/dL (74-106)
[2024-08-28 14:11] LABS: BACTERIA,URINE OCCASSIONAL /HPF (None Seen); RBC,URINE 0-5 /HPF (0-5); SQUAMOUS EPITHELIAL CELL,UR 0-3 (FEW) /LPF (0-3 (FEW)); WBC,URINE 0-5 /HPF (0-5)
[2024-08-28] MEDS: NACL 0.9% 1,000 ML IV ONE (14:22)
[2024-08-28] MEDS: INSULIN REGULAR, HUMAN 100 UNIT/ML VIAL IVP ONE (14:26)
[2024-08-28 15:00] VITALS: BP 149/66; PULSE 83; RESP 16; TEMP 98.8; O2SAT 99
== END 2024-08-28 15:00 | disposition home or self-care (01) ==
LOC: MED 12:25
DX: E11.65 Type 2 diabetes mellitus with hyperglycemia (principal); I10 Essential (primary) hypertension; E05.90 Thyrotoxicosis, unspecified without thyrotoxic crisis or storm; Z87.448 Personal history of other diseases of urinary system; Z90.49 Acquired absence of other specified parts of digestive tract; F41.9 Anxiety disorder, unspecified; Z79.899 Other long term (current) drug therapy; Z79.82 Long term (current) use of aspirin; Z88.8 Allergy status to other drugs, medicaments and biological substances
CPT/HCPCS: 36415; 80048; 81001; 82948; 85025; 93005; 96361; 96374; 99283; J1815; J7030

== ENCOUNTER 2024-09-02 23:50 | Emergency (ER) | payer OTHER ==
[~2024-09-02] VITALS: Ht 147.3 cm; Wt 59.0 kg
[2024-09-03 00:02] VITALS: BP 211/81; PULSE 95; RESP 18; TEMP 98; O2SAT 99
[2024-09-03 00:05] VITALS: TEMP 98
[2024-09-03] MEDS: LORazepam 2 MG/ML VIAL IVP ONE (00:36)
[2024-09-03 00:39] LABS: APPEARANCE,URINE CLEAR (CLEAR); BILIRUBIN,URINE NEGATIVE (NEGATIVE); BLOOD, URINE NEGATIVE (NEGATIVE); COLOR,URINE YELLOW (YELLOW); LEUKOCYTE ESTERASE ,URINE NEGATIVE (NEGATIVE); NITRITE, URINE NEGATIVE (NEGATIVE); PROTEIN,URINE NEGATIVE (NEGATIVE); UGLUCOSE 3+ (NEGATIVE); UROBILINOGEN,URINE 0.2 EU/dL (0.2 - 1)
[2024-09-03] MEDS: NACL 0.9% 1,000 ML IV ONE (00:39)
[2024-09-03 00:41] LABS: HEMATOCRIT 42.9 % (36-48); HEMOGLOBIN 14.3 g/dL (12.0-16.0); MEAN CORPUSCULAR HEMOGLOBIN 29 pg (27-31); MEAN CORPUSCULAR HGB CONC 33 g/dL (33-37); MEAN CORPUSCULAR VOLUME 85.7 fL (80-94); PLATELET COUNT (AUTO) 211 K/uL (140-450); RED CELL DISTRIBUTION WIDTH 14.5 % (11.6-13.7); WHITE BLOOD COUNT (AUTO) 6.4 K/uL (4.8-10.8)
[2024-09-03] MEDS: INSULIN LISPRO 100 UNITS/ML VIAL SUBQ ONE (00:42)
[2024-09-03 00:52] LABS: ANION GAP 11.6 (8-16); CALCIUM 9.2 mg/dL (8.5-10.1); CARBON DIOXIDE 30.8 mmol/L (21-32); CHLORIDE 95 mmol/L (98-107); CREATININE 0.9 mg/dL (0.6-1.3); POTASSIUM 4.4 mmol/L (3.5-5.1); SODIUM SERUM 133 mmol/L (136-145); UREA NITROGEN, BLOOD 12 mg/dL (7-18)
[2024-09-03 00:57] LABS: BACTERIA,URINE OCCASSIONAL /HPF (None Seen); RBC,URINE 0-5 /HPF (0-5); SQUAMOUS EPITHELIAL CELL,UR 4-10 (MOD) /LPF (0-3 (FEW)); YEAST,URINE Rare /HPF (None Seen)
[2024-09-03 01:02] LABS: GLUCOSE 446 mg/dL (74-106)
[2024-09-03 01:19] LABS: EOSINOPHILS % (MANUAL) 3 % (0-4); LYMPHOCYTES % (MANUAL) 15 % (20-46); MONOCYTES % (MANUAL) 10 % (5-12)
[2024-09-03 02:15] VITALS: BP 144/59; PULSE 85; RESP 16; O2SAT 98
== END 2024-09-03 02:45 | disposition home or self-care (01) ==
LOC: MED 23:50
DX: E11.65 Type 2 diabetes mellitus with hyperglycemia (principal); R07.9 Chest pain, unspecified; F41.9 Anxiety disorder, unspecified; I10 Essential (primary) hypertension; E05.90 Thyrotoxicosis, unspecified without thyrotoxic crisis or storm; Z87.448 Personal history of other diseases of urinary system; Z79.899 Other long term (current) drug therapy; Z79.82 Long term (current) use of aspirin; Z88.8 Allergy status to other drugs, medicaments and biological substances
CPT/HCPCS: 36415; 80048; 81001; 82948; 84484; 85025; 87086; 93005; 96361; 96372; 96374; 99283; J1815; J2060; J7030